=== PATIENT | male | born 1985 | race Caucasian/White ===

== ENCOUNTER 2020-07-21 08:51 | Outpatient (REF) | payer OTHER, SELFPAY ==
[2020-07-21 09:34] LABS: Neut%MD 69.4 %; Neutrophils Absolute Auto 5.6 X10*3/uL (2.0-8.3)
== END 2020-07-21 08:52 | disposition home or self-care (01) ==
LOC: HO.LABR 08:51
PROVIDERS: PCP Internal Medicine; Visit Provider Clinical Nurse Specialist Psychiatric/Mental Health
DX: Z79.899 Other long term (current) drug therapy (principal)
CPT/HCPCS: 36415

== ENCOUNTER 2020-08-18 08:55 | Outpatient (REF) | payer OTHER, SELFPAY ==
[2020-08-18 09:44] LABS: Neut%MD 60.4 %; Neutrophils Absolute Auto 3.7 X10*3/uL (2.0-8.3)
== END 2020-08-18 08:56 | disposition home or self-care (01) ==
LOC: HO.LABR 08:55
PROVIDERS: PCP Internal Medicine; Visit Provider Clinical Nurse Specialist Psychiatric/Mental Health
DX: Z79.899 Other long term (current) drug therapy (principal)
CPT/HCPCS: 36415

== ENCOUNTER 2020-09-22 13:06 | Outpatient (REF) | payer OTHER, SELFPAY ==
[2020-09-22 13:33] LABS: Neut%MD 61.1 %; Neutrophils Absolute Auto 3.9 X10*3/uL (2.0-8.3); WBCANC 6.4 X10*3/uL; White Blood Count 6.4 X10*3/uL (4.8-10.8)
== END 2020-09-22 13:07 | disposition home or self-care (01) ==
LOC: HO.LABR 13:06
PROVIDERS: PCP Internal Medicine; Visit Provider Clinical Nurse Specialist Psychiatric/Mental Health
DX: Z79.899 Other long term (current) drug therapy (principal)
CPT/HCPCS: 36415; 85048

== ENCOUNTER 2020-10-06 09:26 | Outpatient (REF) | payer OTHER, SELFPAY | END 2020-10-06 09:27 | disposition home or self-care (01) | LOC: HO.LAB 09:26 | PROVIDERS: Visit Provider Internal Medicine | DX: Z20.828 Contact with and (suspected) exposure to other viral communicable diseases (principal) | CPT/HCPCS: 36415; C9803; U0003 ==

== ENCOUNTER 2020-10-27 13:50 | Outpatient (REF) | payer OTHER, SELFPAY ==
[2020-10-27 14:34] LABS: Neutrophils Absolute Auto 7.4 X10*3/uL (2.0-8.3)
== END 2020-10-27 13:51 | disposition home or self-care (01) ==
LOC: HO.LABR 13:50
PROVIDERS: PCP Internal Medicine; Visit Provider Clinical Nurse Specialist Psychiatric/Mental Health
DX: Z79.899 Other long term (current) drug therapy (principal)
CPT/HCPCS: 36415; 85048

== ENCOUNTER 2020-11-24 13:37 | Outpatient (REF) | payer OTHER, SELFPAY ==
[2020-11-24 14:52] LABS: Neutrophils Absolute Auto 4.7 X10*3/uL (2.0-8.3); WBCANC 7.4 X10*3/uL; White Blood Count 7.4 X10*3/uL (4.8-10.8)
== END 2020-11-24 13:38 | disposition home or self-care (01) ==
LOC: HO.LABR 13:37
PROVIDERS: PCP Internal Medicine; Visit Provider Clinical Nurse Specialist Psychiatric/Mental Health
DX: Z79.899 Other long term (current) drug therapy (principal)
CPT/HCPCS: 36415; 85048

== ENCOUNTER 2020-12-05 10:38 | Outpatient (REF) | payer OTHER, SELFPAY ==
[2020-12-05 14:01] LABS: MANUAL DIFF FLAG NO
[2020-12-05 14:18] LABS: Basophils Percent Auto 0.1 % (0-2); Hematocrit 40.9 % (42-52); Hemoglobin 13.7 g/dl (14.0-18.0); Imm Gran Abs Auto 0.11 X10*3/uL (0.00-0.03); Imm Gran Pct Auto 0.9 % (0.0-0.4); Lymphocytes Absolute Auto 1.8 X10*3/uL (1.2-4.9); Mean Corpuscular HGB Conc 33.5 g/dl (31.0-36.0); Mean Corpuscular Volume 89.5 fL (80-98); Mean Platelet Volume 9.9 fL (9.4-12.4); Monocytes Absolute Auto 0.7 X10*3/uL (0.1-1.2); Monocytes Percent Auto 5.5 % (2-11); Neutrophils Absolute Auto 9.5 X10*3/uL (2.0-8.3); Neutrophils Percent Auto 78.5 % (45-73); Platelet Count 245 X10*3/uL (160-400); Red Blood Count 4.57 X10*6/uL (4.60-5.80); Red Cell Distribution Width 12.3 % (11.0-16.0); White Blood Count 12.1 X10*3/uL (4.8-10.8)
[2020-12-05 14:42] LABS: Alanine Aminotransferase 16 U/L (0-40); Albumin Level 4.8 g/dL (3.5-5.0); Alkaline Phosphatase 121 U/L (39-117); Anion Gap 16 (12-20); Aspartate Amino Transferase 14 U/L (5-37); Bilirubin Total 0.4 mg/dL (0.0-1.0); Blood Urea Nitrogen 19 mg/dL (9-16); Calcium 9.7 mg/dL (8.4-10.2); Carbon Dioxide 29 mmol/L (22-29); Chloride 101 mmol/L (96-108); Cholesterol 260 mg/dL; Estimated Glomerular Filt Rate > 60; Glucose Fasting 87 mg/dL (60-99); HDL Cholesterol 49 mg/dL; LDL Cholesterol Calculated 171 mg/dl; Potassium 4.1 mmol/L (3.3-5.1); Sodium 142 mmol/L (135-145); Total Protein 7.6 g/dL (6.5-8.0); Triglycerides 203 mg/dL
[2020-12-05 14:58] LABS: TSH reflex Free T4 3.69 uIU/mL (0.32-4.0)
== END 2020-12-05 10:39 | disposition home or self-care (01) ==
LOC: HO.HMGCLDS 10:38
PROVIDERS: PCP Internal Medicine; Visit Provider Internal Medicine
DX: Z00.01 Encounter for general adult medical examination with abnormal findings (principal); K59.00 Constipation, unspecified; R00.0 Tachycardia, unspecified
CPT/HCPCS: 36415; 80053; 80061; 84443; 85025

== ENCOUNTER 2020-12-22 13:17 | Outpatient (REF) | payer OTHER, SELFPAY ==
[2020-12-22 14:01] LABS: Neut%MD 66.2 %; Neutrophils Absolute Auto 4.6 X10*3/uL (2.0-8.3)
== END 2020-12-22 13:18 | disposition home or self-care (01) ==
LOC: HO.LABR 13:17
PROVIDERS: PCP Internal Medicine; Visit Provider Clinical Nurse Specialist Psychiatric/Mental Health
DX: Z79.899 Other long term (current) drug therapy (principal)
CPT/HCPCS: 36415; 85048

== ENCOUNTER → 2020-12-29 13:37 | Outpatient (BNVA) | payer OTHER, SELFPAY | PROVIDERS: PCP Internal Medicine; Visit Provider Internal Medicine | DX: R00.0 Tachycardia, unspecified (principal) | CPT/HCPCS: 93005; 99202 ==

== ENCOUNTER → 2021-01-09 09:57 | Outpatient (REF) | payer OTHER, SELFPAY ==
--- NOTE | 2021-01-09 12:00 | ECG_ITS ---
Hook-up date: 2021-01-09 10:06:00 Duration: 24:30:00 Test Indications: TACHYCARDIA, UNSPECIFIED Medications: 065935 QRS complexes 784 Ventricular ectopics which represent <1 % of total QRS comp. 2 Supraventricular ectopics which represent <1 % of total QRS comp. * Paced QRS complexs which represent % of total QRS comp. VENTRICULAR ECTOPY 784 Isolated 0 Bigeminal Cycles 0 Couplets 0 Runs 0 Beats in Runs * Beats LONGEST at * BPM at :: -- * Beats FASTEST at * BPM at :: -- SUPRAVENTRICULAR ECTOPY 2 Isolated 0 Couplets 0 Runs 0 Beats in Runs * Beats LONGEST at * BPM at :: -- * Beats FASTEST at * BPM at :: -- HEART RATES 69 MIN at 06:20:46 2021-01-10 91 AVG 135 MAX at 12:37:50 2021-01-09 LONGEST RR 0.8560 secs at 06:20:46 2021-01-10 S-T LEVELS Channel 1 - 128 mm at 10:06:00 2021-01-09 - 128 mm at 10:06:00 2021-01-09 Channel 2 - 128 mm at 10:06:00 2021-01-09 - 128 mm at 10:06:00 2021-01-09 Channel 3 - 128 mm at 02:92:51 -- - 128 mm at 02:92:51 Basic rhythm Normal sinus rhythm No long pause or profound bradycardia Occasional Premature ventricular complexes , isolated No diary submitted Referred By: Francois Shaw Overread By: RUSTAM JOAQUIN MD
== END ==
LOC: HO.CARD 09:57
PROVIDERS: PCP Internal Medicine; Visit Provider Internal Medicine
DX: R00.0 Tachycardia, unspecified (principal)
CPT/HCPCS: 93226

== ENCOUNTER 2021-01-19 13:51 | Outpatient (REF) | payer OTHER, SELFPAY ==
[2021-01-19 14:39] LABS: Neutrophils Absolute Auto 4.2 X10*3/uL (2.0-8.3); White Blood Count 6.6 X10*3/uL (4.8-10.8)
== END 2021-01-19 13:52 | disposition home or self-care (01) ==
LOC: HO.LABR 13:51
PROVIDERS: PCP Internal Medicine; Visit Provider Clinical Nurse Specialist Psychiatric/Mental Health
DX: Z79.899 Other long term (current) drug therapy (principal)
CPT/HCPCS: 36415; 85048

== ENCOUNTER → 2021-02-09 09:21 | Outpatient (REF) | payer OTHER, SELFPAY ==
--- NOTE | 2021-02-09 09:32 | CA_ITS ---
Transthoracic Echocardiogram Patient (Last, First, Middle): Jose Hernandez, Gender: Male Date of : 1985 Age: 36 Procedure Date: 02/09/2021 Procedure Type: Transthoracic Echocardiogram Location: OP Height: 180.34 cm Weight: 72.58 kg BSA: 1.92 m2 Heart Rate: bpm BP: 102 / 62 mmHg Plate Cleaner: Melisa MD: Francois Shaw MD Wholesale Representative: Howard Vargas MD Symptoms: R00.0 - Tachycardia, unspecified Study Quality: Fair ECG Rhythm: Sinus Conclusions: - 1. Low normal LV systolic function with grade 1 diastolic dysfunction 2. Normal cardiac valvular Doppler 3. No pericardial effusion Findings Left Ventricle Normal left ventricular cavity size. There is normal left ventricular wall thickness. The left ventricular systolic function is low normal. The visually estimated ejection fraction is between 50-55%. Spectral Doppler is indicative of an impaired relaxation filling pattern. E/E prime ratio is <8, consistent with normal filling pressures. Evidence suggests grade I (mild) diastolic dysfunction. Right Ventricle Normal right ventricular cavity size and systolic function. Atria Both atria are normal in size. There is no evidence of interatrial shunt. Aortic Valve The aortic valve structure and function is likely normal. There is no aortic valve stenosis. There is no aortic valve regurgitation. Mitral Valve Normal mitral valve structure and function. There is trace mitral valve regurgitation. There is no mitral valve stenosis. Pulmonic Valve The pulmonic valve was not well visualized. Tricuspid Valve Likely normal tricuspid valve structure and function. Tricuspid regurgitation envelope is inadequate for calculation of right ventricular systolic pressure. Great Vessels All visible segments of the aorta are normal in size. The pulmonary artery was not well visualized. Venous The inferior vena cava is normal in size and collapses greater than 50% with inspiration. Pericardium/Pleural There is no evidence of pericardial effusion. Prior Study Comparison No prior study available for comparison. Measurements 2D Linear Measurements RVIDd: 2.67 RVIDd Index: 1.39 IVSd: 0.64 0.6-0.9/0.6-1.0 cm LVIDd: 4.23 3.9-5.3/4.2-5.9 cm LVIDd Index: 2.20 2.4-3.2/2.2-3.1 cm/m2 LVIDs: 3.10 2.0-3.6 cm LVPWd: 0.79 0.7-1.1 cm Ao Root: 2.50 2.1-3.5 cm LA Diam: 2.60 2.7-3.8/3.0-4.0 cm LAIDs Index: 1.35 1.5-2.3 cm/m2 LV Mass: 109.26 67-162/88-224 g LV Mass Index: 56.91 43-95/49-115 g/m2 LVOT Diam: 2.10 3.0+(-)1.3 cm 2D Systolic Function EF 4C: 42.80 >55% EF 2C: 57.30 >55% EF BiP: 51.10 >55% Mitral Valve MV Pk E: 0.53 MV PK A: 0.62 MV Decel Time: 229.00 E/A: 0.90 E'Lateral: 8.32 E'Medial: 6.58 E/E' Med: 8.00 E/E' Lat: 6.40 Aortic Valve AoV Pk Huan: 1.08 AoV Mn Huan: 0.83 AoV VTI: 0.20 AoV Pk Grad: 5.00 Aov Mn Grad: 3.00 NATAN Cont.VTI: 2.78 LVOT LVOT Pk Huan: 1.00 LVOT Mn Huan: 0.63 LVOT VTI: 0.16 LVOT Pk Grad: 4.00 LVOT Mn Grad: 2.00 LVOT Diam: 2.10 LVOT Area: 3.46 Diastolic Function MV Pk E: 0.53 MV Pk A: 0.62 E/A: 0.90 E'Medial: 6.58 E/E' Med: 8.00 E' Laterial: 8.32 E/E' Lat: 6.40 Tricuspid Valve RA Press: 3.00 Great Vessels Aorta Ao Root-2D: 2.50 2.0-3.7 cm Ao Asc: 3.00 2.1-3.4 cm Ao Arch: 2.60 Updated in Other Vendor System with Status of Final Howard Vargas MD electronically signed on 02/10/2021 3:49:54 PM with status of Final
== END ==
LOC: HO.CARD 09:21
PROVIDERS: PCP Internal Medicine; Visit Provider Internal Medicine
DX: R00.0 Tachycardia, unspecified (principal)
CPT/HCPCS: 93306

== ENCOUNTER 2021-02-16 09:26 | Outpatient (REF) | payer OTHER, SELFPAY ==
[2021-02-16 10:17] LABS: Neut%MD 62.3 %; Neutrophils Absolute Auto 4.4 X10*3/uL (2.0-8.3)
== END 2021-02-16 09:27 | disposition home or self-care (01) ==
LOC: HO.LABR 09:26
PROVIDERS: PCP Internal Medicine; Visit Provider Clinical Nurse Specialist Psychiatric/Mental Health
DX: Z79.899 Other long term (current) drug therapy (principal)
CPT/HCPCS: 36415; 85048

== ENCOUNTER → 2021-03-02 13:50 | Outpatient (BNVA) | payer OTHER, SELFPAY | PROVIDERS: PCP Internal Medicine; Referring Provider Internal Medicine; Visit Provider Internal Medicine | DX: I49.3 Ventricular premature depolarization (principal); R00.0 Tachycardia, unspecified | CPT/HCPCS: 99212 ==

== ENCOUNTER 2021-03-16 13:13 | Outpatient (REF) | payer OTHER, SELFPAY ==
[2021-03-16 14:10] LABS: Neutrophils Absolute Auto 4.6 X10*3/uL (2.0-8.3); White Blood Count 7.3 X10*3/uL (4.8-10.8)
== END 2021-03-16 13:14 | disposition home or self-care (01) ==
LOC: HO.LABR 13:13
PROVIDERS: PCP Internal Medicine; Visit Provider Clinical Nurse Specialist Psychiatric/Mental Health
DX: Z79.899 Other long term (current) drug therapy (principal)
CPT/HCPCS: 36415; 85048

== ENCOUNTER 2021-04-13 13:38 | Outpatient (REF) | payer OTHER, SELFPAY ==
[2021-04-13 14:22] LABS: Neutrophils Absolute Auto 4.7 X10*3/uL (2.0-8.3); White Blood Count 7.1 X10*3/uL (4.8-10.8)
== END 2021-04-13 13:39 | disposition home or self-care (01) ==
LOC: HO.LABR 13:38
PROVIDERS: PCP Internal Medicine; Visit Provider Clinical Nurse Specialist Psychiatric/Mental Health
DX: Z79.899 Other long term (current) drug therapy (principal)
CPT/HCPCS: 36415; 85048

== ENCOUNTER 2021-05-11 11:15 | Outpatient (REF) | payer OTHER, SELFPAY ==
[2021-05-11 12:42] LABS: Neutrophils Absolute Auto 3.7 X10*3/uL (2.0-8.3); White Blood Count 6.2 X10*3/uL (4.8-10.8)
== END 2021-05-11 11:16 | disposition home or self-care (01) ==
LOC: HO.LABR 11:15
PROVIDERS: PCP Internal Medicine; Visit Provider Clinical Nurse Specialist Psychiatric/Mental Health
DX: Z79.899 Other long term (current) drug therapy (principal)
CPT/HCPCS: 36415; 85048

== ENCOUNTER 2021-06-15 09:15 | Outpatient (REF) | payer OTHER, SELFPAY ==
[2021-06-15 10:39] LABS: Neutrophils Absolute Auto 4.5 X10*3/uL (2.0-8.3)
== END 2021-06-15 09:16 | disposition home or self-care (01) ==
LOC: HO.LABR 09:15
PROVIDERS: PCP Internal Medicine; Visit Provider Clinical Nurse Specialist Psychiatric/Mental Health
DX: Z79.899 Other long term (current) drug therapy (principal)
CPT/HCPCS: 36415; 85048

== ENCOUNTER 2021-07-13 13:56 | Outpatient (REF) | payer OTHER, SELFPAY ==
[2021-07-13 14:29] LABS: Neutrophils Absolute Auto 5.2 X10*3/uL (2.0-8.3); White Blood Count 8.4 X10*3/uL (4.8-10.8)
== END 2021-07-13 13:57 | disposition home or self-care (01) ==
LOC: HO.LABR 13:56
PROVIDERS: PCP Internal Medicine; Visit Provider Clinical Nurse Specialist Psychiatric/Mental Health
DX: Z79.899 Other long term (current) drug therapy (principal)
CPT/HCPCS: 36415; 85048

== ENCOUNTER 2021-08-03 14:28 | Outpatient (REF) | payer OTHER, SELFPAY ==
[2021-08-03 14:39] LABS: Neutrophils Absolute Auto 5.27 x10*3/uL (2.0-8.3); White Blood Count 8.5 X10*3/uL (4.8-10.8)
== END 2021-08-03 14:29 | disposition home or self-care (01) ==
LOC: HO.LABR 14:28
PROVIDERS: PCP Internal Medicine; Visit Provider Clinical Nurse Specialist Psychiatric/Mental Health
DX: Z79.899 Other long term (current) drug therapy (principal)
CPT/HCPCS: 36415; 85048

== ENCOUNTER 2021-09-07 13:47 | Outpatient (REF) | payer OTHER, SELFPAY ==
[2021-09-07 14:18] LABS: White Blood Count 7.6 X10*3/uL (4.8-10.8)
== END 2021-09-07 13:48 | disposition home or self-care (01) ==
LOC: HO.LABR 13:47
PROVIDERS: PCP Internal Medicine; Visit Provider Clinical Nurse Specialist Psychiatric/Mental Health
DX: Z79.899 Other long term (current) drug therapy (principal)
CPT/HCPCS: 36415; 85048

== ENCOUNTER 2021-10-12 08:49 | Outpatient (REF) | payer OTHER, SELFPAY ==
[2021-10-12 09:24] LABS: Neut%MD 63.8 %; Neutrophils Absolute Auto 4.5 x10*3/uL (2.0-8.3); WBCANC 7.1 X10*3/uL; White Blood Count 7.1 X10*3/uL (4.8-10.8)
== END 2021-10-12 08:50 | disposition home or self-care (01) ==
LOC: HO.LABR 08:49
PROVIDERS: PCP Internal Medicine; Visit Provider Clinical Nurse Specialist Psychiatric/Mental Health
DX: Z79.899 Other long term (current) drug therapy (principal)
CPT/HCPCS: 36415; 85048

== ENCOUNTER 2021-11-09 14:57 | Outpatient (REF) | payer OTHER, SELFPAY | END 2021-11-09 14:58 | disposition home or self-care (01) | LOC: HO.LABR 14:57 | PROVIDERS: PCP Internal Medicine; Visit Provider Clinical Nurse Specialist Psychiatric/Mental Health | DX: Z79.899 Other long term (current) drug therapy (principal) | CPT/HCPCS: 36415 ==

== ENCOUNTER 2021-12-07 09:04 | Outpatient (REF) | payer OTHER, SELFPAY ==
[2021-12-07 09:40] LABS: Hematocrit 39.6 % (42.0-52.0); Hemoglobin 13.2 g/dl (14.0-18.0); IG%MD 0.4 %; Lymph%MD 27.9 %; Mean Corpuscular HGB Conc 33.3 g/dl (31.0-36.0); Mean Corpuscular Hemoglobin 29.9 pg (27.0-33.0); Mean Corpuscular Volume 89.6 fL (80.0-98.0); Mean Platelet Volume 9.3 fL (9.4-12.4); Mono%MD 7.1 %; Neut%MD 64.6 %; Platelet Count 234 X10*3/uL (160-400); Red Blood Count 4.42 X10*6/uL (4.60-5.80); Red Cell Distribution Width 12.5 % (11.0-16.0); White Blood Count 7.1 X10*3/uL (4.8-10.8)
[2021-12-07 14:13] LABS: Lymphocytes Absolute Manual 1.9 X10*3/uL (1.2-4.9); Lymphocytes Percent Manual 27 % (20-40); Monocytes Absolute Manual 0.6 X10*3/uL (0.1-1.2); Monocytes Percent Manual 8 % (2-11); Neutrophils Percent Manual 65 % (45-73)
[2021-12-07 14:14] LABS: Band Neutrophils Percent 0 % (3-5); Neutrophils Absolute Manual 4.6 X10*3/uL (2.0-8.3); Platelet Estimate NORMAL (NORMAL); Platelet Morphology Comment NORMAL; RBC Morphology NORMAL
== END 2021-12-07 09:05 | disposition home or self-care (01) ==
LOC: HO.LABR 09:04
PROVIDERS: PCP Internal Medicine; Visit Provider Registered Nurse
DX: Z51.81 Encounter for therapeutic drug level monitoring (principal); Z79.899 Other long term (current) drug therapy
CPT/HCPCS: 36415; 85007; 85027

== ENCOUNTER 2022-01-04 14:53 | Outpatient (REF) | payer OTHER, SELFPAY ==
[2022-01-04 15:02] LABS: MANUAL DIFF FLAG NO
[2022-01-04 15:24] LABS: Basophils Percent Auto 0.1 % (0-2); Eosinophils Percent Auto 0.1 % (0-4); Hematocrit 37.1 % (42.0-52.0); Hemoglobin 12.5 g/dl (14.0-18.0); Imm Gran Abs Auto 0.04 X10*3/uL (0.00-0.03); Imm Gran Pct Auto 0.4 % (0.0-0.4); Lymphocytes Absolute Auto 2.2 X10*3/uL (1.2-4.9); Lymphocytes Percent Auto 21.8 % (20-40); Mean Corpuscular HGB Conc 33.7 g/dl (31.0-36.0); Mean Corpuscular Volume 89.2 fL (80.0-98.0); Mean Platelet Volume 9.4 fL (9.4-12.4); Monocytes Absolute Auto 0.6 X10*3/uL (0.1-1.2); Monocytes Percent Auto 6.2 % (2-11); Neutrophils Absolute Auto 7.3 x10*3/uL (2.0-8.3); Neutrophils Percent Auto 71.4 % (45-73); Platelet Count 256 X10*3/uL (160-400); Red Blood Count 4.16 X10*6/uL (4.60-5.80); Red Cell Distribution Width 12.7 % (11.0-16.0); White Blood Count 10.2 X10*3/uL (4.8-10.8)
== END 2022-01-04 14:54 | disposition home or self-care (01) ==
LOC: HO.LABR 14:53
PROVIDERS: PCP Internal Medicine; Visit Provider Registered Nurse
DX: Z79.899 Other long term (current) drug therapy (principal)
CPT/HCPCS: 36415; 85025

== ENCOUNTER 2022-02-01 08:48 | Outpatient (REF) | payer OTHER, SELFPAY ==
[2022-02-01 09:19] LABS: MANUAL DIFF FLAG NO
[2022-02-01 10:05] LABS: Hematocrit 38.3 % (42.0-52.0); Hemoglobin 12.7 g/dl (14.0-18.0); Imm Gran Abs Auto 0.03 X10*3/uL (0.00-0.03); Imm Gran Pct Auto 0.5 % (0.0-0.4); Lymphocytes Absolute Auto 1.7 X10*3/uL (1.2-4.9); Lymphocytes Percent Auto 26.3 % (20-40); Mean Corpuscular HGB Conc 33.2 g/dl (31.0-36.0); Mean Corpuscular Hemoglobin 29.5 pg (27.0-33.0); Mean Corpuscular Volume 89.1 fL (80.0-98.0); Mean Platelet Volume 9.5 fL (9.4-12.4); Monocytes Absolute Auto 0.4 X10*3/uL (0.1-1.2); Monocytes Percent Auto 5.6 % (2-11); Neutrophils Absolute Auto 4.4 x10*3/uL (2.0-8.3); Neutrophils Percent Auto 67.6 % (45-73); Platelet Count 240 X10*3/uL (160-400); Red Cell Distribution Width 12.5 % (11.0-16.0); White Blood Count 6.5 X10*3/uL (4.8-10.8)
== END 2022-02-01 08:49 | disposition home or self-care (01) ==
LOC: HO.LABR 08:48
PROVIDERS: PCP Internal Medicine; Visit Provider Registered Nurse
DX: Z79.899 Other long term (current) drug therapy (principal)
CPT/HCPCS: 36415; 85025

== ENCOUNTER → 2022-02-19 07:35 | Outpatient (REF) | payer OTHER, SELFPAY ==
--- NOTE | 2022-02-19 07:39 | CA_ITS ---
Transthoracic Echocardiogram Patient (Last, First, Middle): Jose Hernandez, Gender: Male Date of : 1985 Age: 37 Procedure Date: 02/19/2022 Procedure Type: Transthoracic Echocardiogram Location: OP Height: 180.34 cm Weight: 74.84 kg BSA: 1.94 m2 Heart Rate: bpm BP: 110 / 70 mmHg Cooking Chef: TO/ Referring MD: Francois Shaw MD Symptoms: R00.0 - Tachycardia, unspecified Study Quality: Good ECG Rhythm: Sinus Conclusions: - The left ventricular systolic function is mildly decreased. Visually estimated LVEF about 50%. - No obvious valvular pathology seen on this study. Findings Left Ventricle Normal left ventricular cavity size. There is normal left ventricular wall thickness. The left ventricular systolic function is mildly decreased. There is borderline global hypokinesis. Diastolic function is normal for age. Visually estimated LVEF about 50%. Right Ventricle Normal right ventricular cavity size and systolic function. Atria Both atria are normal in size. Aortic Valve There is a normal trileaflet aortic valve. There is no aortic valve stenosis. There is no aortic valve regurgitation. Mitral Valve The mitral valve appears normal. There is no mitral valve regurgitation. There is no mitral valve stenosis. Pulmonic Valve The pulmonic valve is likely normal. Tricuspid Valve Normal tricuspid valve structure. There is no tricuspid valve regurgitation. The pulmonary artery systolic pressure is normal. Great Vessels The asc aorta and aortic arch are normal in size. Venous The inferior vena cava is normal in size and collapses greater than 50% with inspiration. Pericardium/Pleural There is no evidence of pericardial effusion. Prior Study Comparison No significant change compared to prior study dated: 02/09/2021. Recommendations, Care & Conclusions No obvious valvular pathology seen on this study. Measurements 2D Linear Measurements IVSd: 0.68 0.6-0.9/0.6-1.0 cm LVIDd: 4.62 3.9-5.3/4.2-5.9 cm LVIDd Index: 2.38 2.4-3.2/2.2-3.1 cm/m2 LVIDs: 2.80 2.0-3.6 cm LVPWd: 0.77 0.7-1.1 cm LA Diam: 2.70 2.7-3.8/3.0-4.0 cm LAIDs Index: 1.39 1.5-2.3 cm/m2 LV Mass: 130.84 67-162/88-224 g LV Mass Index: 67.45 43-95/49-115 g/m2 LVOT Diam: 2.10 3.0+(-)1.3 cm 2D Systolic Function EF 4C: 59.90 >55% EF 2C: 53.30 >55% EF BiP: 56.00 >55% Mitral Valve MV Pk E: 0.63 MV PK A: 0.66 MV Decel Time: 184.00 E/A: 0.90 E'Lateral: 6.85 E'Medial: 7.83 E/E' Med: 8.00 E/E' Lat: 9.10 PHT: 54.00 MVA PHT: 4.07 Decel [place]: 3.39 Aortic Valve AoV Pk Huan: 1.06 AoV Mn Huan: 0.77 AoV VTI: 0.18 AoV Pk Grad: 4.00 Aov Mn Grad: 3.00 NATAN Cont.VTI: 2.87 LVOT LVOT Pk Huan: 1.03 LVOT Mn Huan: 0.68 LVOT VTI: 0.15 LVOT Pk Grad: 4.00 LVOT Mn Grad: 2.00 LVOT Diam: 2.10 LVOT Area: 3.46 Diastolic Function MV Pk E: 0.63 MV Pk A: 0.66 E/A: 0.90 E'Medial: 7.83 E/E' Med: 8.00 E' Laterial: 6.85 E/E' Lat: 9.10 Right Ventricle TAPSE (mm): 26.90 TVS' Huan: 14.50 Tricuspid Valve TR Pk Huan: 1.21 TR Pk Grad: 6.00 Great Vessels Aorta Sinus of Valsalva: 2.95 2.0-3.[address] [place]: 2.69 1.7-3.4 cm Ao Asc: 3.30 2.1-3.4 cm Ao Arch: 2.70 Updated in Other Vendor System with Status of Final Francois Shaw MD electronically signed on 02/20/2022 12:01:44 PM with status of Final
--- NOTE | 2022-02-19 09:33 | ECG_ITS ---
Hook-up date: 2022-02-19 07:56:00 Duration: 47:59:00 Test Indications: TACHYCARDIA Medications: 568719 QRS complexes 1832 Ventricular ectopics which represent 1 % of total QRS comp. 1 Supraventricular ectopics which represent <1 % of total QRS comp. * Paced QRS complexs which represent % of total QRS comp. VENTRICULAR ECTOPY 1832 Isolated 0 Bigeminal Cycles 0 Couplets 0 Runs 0 Beats in Runs * Beats LONGEST at * BPM at :: -- * Beats FASTEST at * BPM at :: -- SUPRAVENTRICULAR ECTOPY 1 Isolated 0 Couplets 0 Runs 0 Beats in Runs * Beats LONGEST at * BPM at :: -- * Beats FASTEST at * BPM at :: -- HEART RATES 56 MIN at 05:26:13 2022-02-20 88 AVG 128 MAX at 12:22:40 2022-02-19 LONGEST RR 1.0640 secs at 05:26:17 2022-02-20 S-T LEVELS Channel 1 - 128 mm at 07:56:00 2022-02-19 - 128 mm at 07:56:00 2022-02-19 Channel 2 - 128 mm at 07:56:00 2022-02-19 - 128 mm at 07:56:00 2022-02-19 Channel 3 - 128 mm at 02:71:51 -- - 128 mm at 02:71:51 Underlying rhythm is sinus; Average ventricular rate 88/min; range 56-128/min; About 30% of the time, rate >100/min; Occasional ventricualr ectopy (1% burden); Patient did not report any symptoms in the diary Referred By: Javier Gonzalez Overread By: JAVIER GONZALEZ
== END ==
LOC: HO.CARD 07:35
PROVIDERS: PCP Internal Medicine; Visit Provider Internal Medicine
DX: R00.0 Tachycardia, unspecified (principal)
CPT/HCPCS: 93225; 93226; 93306

== ENCOUNTER 2022-03-01 09:01 | Outpatient (REF) | payer OTHER, SELFPAY ==
[2022-03-01 09:19] LABS: MANUAL DIFF FLAG NO
[2022-03-01 09:43] LABS: Basophils Percent Auto 0.2 % (0-2); Hemoglobin 13.1 g/dl (14.0-18.0); Imm Gran Abs Auto 0.02 X10*3/uL (0.00-0.03); Imm Gran Pct Auto 0.3 % (0.0-0.4); Lymphocytes Absolute Auto 1.9 X10*3/uL (1.2-4.9); Lymphocytes Percent Auto 32.2 % (20-40); Mean Corpuscular HGB Conc 33.6 g/dl (31.0-36.0); Mean Corpuscular Hemoglobin 29.6 pg (27.0-33.0); Mean Corpuscular Volume 88.2 fL (80.0-98.0); Mean Platelet Volume 9.3 fL (9.4-12.4); Monocytes Absolute Auto 0.4 X10*3/uL (0.1-1.2); Monocytes Percent Auto 6.2 % (2-11); Neutrophils Absolute Auto 3.5 x10*3/uL (2.0-8.3); Neutrophils Percent Auto 61.1 % (45-73); Platelet Count 211 X10*3/uL (160-400); Red Blood Count 4.42 X10*6/uL (4.60-5.80); Red Cell Distribution Width 12.2 % (11.0-16.0); White Blood Count 5.8 X10*3/uL (4.8-10.8)
== END 2022-03-01 09:02 | disposition home or self-care (01) ==
LOC: HO.LABR 09:01
PROVIDERS: PCP Internal Medicine; Visit Provider Clinical Nurse Specialist Psychiatric/Mental Health, Adult
DX: Z79.899 Other long term (current) drug therapy (principal)
CPT/HCPCS: 36415; 85025

== ENCOUNTER → 2022-03-05 11:40 | Outpatient (BNVA) | payer OTHER, SELFPAY | PROVIDERS: PCP Internal Medicine; Referring Provider Internal Medicine; Visit Provider Internal Medicine | DX: R00.0 Tachycardia, unspecified (principal); I49.3 Ventricular premature depolarization | CPT/HCPCS: 93005; 99212 ==

== ENCOUNTER 2022-03-29 08:48 | Outpatient (REF) | payer OTHER, SELFPAY ==
[2022-03-29 09:14] LABS: MANUAL DIFF FLAG NO
[2022-03-29 09:59] LABS: Basophils Percent Auto 0.1 % (0-2); Eosinophils Percent Auto 0.1 % (0-4); Hematocrit 38.2 % (42.0-52.0); Hemoglobin 12.8 g/dl (14.0-18.0); Imm Gran Abs Auto 0.03 X10*3/uL (0.00-0.03); Imm Gran Pct Auto 0.4 % (0.0-0.4); Mean Corpuscular HGB Conc 33.5 g/dl (31.0-36.0); Mean Corpuscular Volume 86.6 fL (80.0-98.0); Mean Platelet Volume 9.4 fL (9.4-12.4); Monocytes Absolute Auto 0.4 X10*3/uL (0.1-1.2); Monocytes Percent Auto 5.9 % (2-11); Neutrophils Absolute Auto 4.7 x10*3/uL (2.0-8.3); Neutrophils Percent Auto 65.5 % (45-73); Platelet Count 215 X10*3/uL (160-400); Red Blood Count 4.41 X10*6/uL (4.60-5.80); Red Cell Distribution Width 11.9 % (11.0-16.0); White Blood Count 7.2 X10*3/uL (4.8-10.8)
== END 2022-03-29 08:49 | disposition home or self-care (01) ==
LOC: HO.LABR 08:48
PROVIDERS: PCP Internal Medicine; Visit Provider Clinical Nurse Specialist Psychiatric/Mental Health, Adult
DX: Z79.899 Other long term (current) drug therapy (principal)
CPT/HCPCS: 36415; 85025

== ENCOUNTER 2022-04-26 09:48 | Outpatient (REF) | payer OTHER, SELFPAY ==
[2022-04-26 10:04] LABS: MANUAL DIFF FLAG NO
[2022-04-26 10:47] LABS: Basophils Percent Auto 0.1 % (0-2); Eosinophils Percent Auto 0.1 % (0-4); Hematocrit 38.4 % (42.0-52.0); Hemoglobin 13.1 g/dl (14.0-18.0); Imm Gran Abs Auto 0.04 X10*3/uL (0.00-0.03); Imm Gran Pct Auto 0.5 % (0.0-0.4); Lymphocytes Absolute Auto 2.3 X10*3/uL (1.2-4.9); Lymphocytes Percent Auto 30.5 % (20-40); Mean Corpuscular HGB Conc 34.1 g/dl (31.0-36.0); Mean Corpuscular Hemoglobin 29.5 pg (27.0-33.0); Mean Corpuscular Volume 86.5 fL (80.0-98.0); Mean Platelet Volume 9.2 fL (9.4-12.4); Monocytes Absolute Auto 0.5 X10*3/uL (0.1-1.2); Neutrophils Absolute Auto 4.7 x10*3/uL (2.0-8.3); Neutrophils Percent Auto 61.8 % (45-73); Platelet Count 215 X10*3/uL (160-400); Red Blood Count 4.44 X10*6/uL (4.60-5.80); Red Cell Distribution Width 12.2 % (11.0-16.0); White Blood Count 7.6 X10*3/uL (4.8-10.8)
== END 2022-04-26 09:49 | disposition home or self-care (01) ==
LOC: HO.LABR 09:48
PROVIDERS: PCP Internal Medicine; Visit Provider Clinical Nurse Specialist Psychiatric/Mental Health, Adult
DX: Z79.899 Other long term (current) drug therapy (principal)
CPT/HCPCS: 36415; 85025

== ENCOUNTER 2022-05-24 11:57 | Outpatient (REF) | payer OTHER, SELFPAY ==
[2022-05-24 12:19] LABS: MANUAL DIFF FLAG NO
[2022-05-24 14:05] LABS: Basophils Percent Auto 0.1 % (0-2); Eosinophils Percent Auto 0.1 % (0-4); Hematocrit 39.1 % (42.0-52.0); Hemoglobin 12.9 g/dl (14.0-18.0); Imm Gran Abs Auto 0.03 X10*3/uL (0.00-0.03); Imm Gran Pct Auto 0.4 % (0.0-0.4); Lymphocytes Absolute Auto 1.9 X10*3/uL (1.2-4.9); Lymphocytes Percent Auto 25.9 % (20-40); Mean Corpuscular Hemoglobin 28.7 pg (27.0-33.0); Mean Corpuscular Volume 86.9 fL (80.0-98.0); Mean Platelet Volume 9.8 fL (9.4-12.4); Monocytes Absolute Auto 0.5 X10*3/uL (0.1-1.2); Monocytes Percent Auto 6.5 % (2-11); Neutrophils Absolute Auto 4.8 x10*3/uL (2.0-8.3); Platelet Count 260 X10*3/uL (160-400); Red Cell Distribution Width 12.6 % (11.0-16.0); White Blood Count 7.2 X10*3/uL (4.8-10.8)
== END 2022-05-24 11:58 | disposition home or self-care (01) ==
LOC: HO.LAB 11:57
PROVIDERS: Visit Provider Clinical Nurse Specialist Psychiatric/Mental Health, Adult
DX: Z79.899 Other long term (current) drug therapy (principal)
CPT/HCPCS: 36415; 85025

== ENCOUNTER → 2022-06-13 10:39 | Outpatient (BNVA) | payer OTHER, SELFPAY | PROVIDERS: PCP Internal Medicine; Referring Provider Internal Medicine; Visit Provider Internal Medicine | DX: R00.2 Palpitations (principal) | CPT/HCPCS: 93005; 99212 ==

== ENCOUNTER 2022-06-21 09:00 | Outpatient (REF) | payer OTHER, SELFPAY ==
[2022-06-21 09:21] LABS: MANUAL DIFF FLAG NO
[2022-06-21 09:48] LABS: Basophils Percent Auto 0.1 % (0-2); Eosinophils Percent Auto 0.1 % (0-4); Hematocrit 37.1 % (42.0-52.0); Hemoglobin 12.7 g/dl (14.0-18.0); Imm Gran Abs Auto 0.02 X10*3/uL (0.00-0.03); Imm Gran Pct Auto 0.3 % (0.0-0.4); Lymphocytes Absolute Auto 2.4 X10*3/uL (1.2-4.9); Lymphocytes Percent Auto 34.2 % (20-40); Mean Corpuscular HGB Conc 34.2 g/dl (31.0-36.0); Mean Corpuscular Hemoglobin 29.5 pg (27.0-33.0); Mean Corpuscular Volume 86.3 fL (80.0-98.0); Mean Platelet Volume 9.2 fL (9.4-12.4); Monocytes Absolute Auto 0.4 X10*3/uL (0.1-1.2); Monocytes Percent Auto 5.5 % (2-11); Neut%MD 59.8 %; Neutrophils Absolute Auto 4.2 x10*3/uL (2.0-8.3); Neutrophils Percent Auto 59.8 % (45-73); Platelet Count 227 X10*3/uL (160-400); Red Cell Distribution Width 12.4 % (11.0-16.0)
== END 2022-06-21 09:01 | disposition home or self-care (01) ==
LOC: HO.LABR 09:00
PROVIDERS: Absent Provider Clinical Nurse Specialist Psychiatric/Mental Health, Adult; PCP Internal Medicine; Referring Provider Internal Medicine; Visit Provider Registered Nurse
DX: Z79.899 Other long term (current) drug therapy (principal)
CPT/HCPCS: 36415; 85025

== ENCOUNTER 2022-07-19 13:56 | Outpatient (REF) | payer OTHER, SELFPAY ==
[2022-07-19 14:08] LABS: MANUAL DIFF FLAG NO
[2022-07-19 14:29] LABS: Basophils Percent Auto 0.3 % (0-2); Eosinophils Percent Auto 0.3 % (0-4); Hematocrit 38.9 % (42.0-52.0); Hemoglobin 13.2 g/dl (14.0-18.0); Imm Gran Abs Auto 0.03 X10*3/uL (0.00-0.03); Imm Gran Pct Auto 0.4 % (0.0-0.4); Lymphocytes Absolute Auto 2.1 X10*3/uL (1.2-4.9); Lymphocytes Percent Auto 29.5 % (20-40); Mean Corpuscular HGB Conc 33.9 g/dl (31.0-36.0); Mean Corpuscular Hemoglobin 29.7 pg (27.0-33.0); Mean Corpuscular Volume 87.6 fL (80.0-98.0); Mean Platelet Volume 9.2 fL (9.4-12.4); Monocytes Absolute Auto 0.5 X10*3/uL (0.1-1.2); Monocytes Percent Auto 6.3 % (2-11); Neutrophils Absolute Auto 4.6 x10*3/uL (2.0-8.3); Neutrophils Percent Auto 63.2 % (45-73); Platelet Count 231 X10*3/uL (160-400); Red Blood Count 4.44 X10*6/uL (4.60-5.80); Red Cell Distribution Width 12.4 % (11.0-16.0); White Blood Count 7.2 X10*3/uL (4.8-10.8)
== END 2022-07-19 13:57 | disposition home or self-care (01) ==
LOC: HO.LABR 13:56
PROVIDERS: Absent Provider Clinical Nurse Specialist Psychiatric/Mental Health, Adult; PCP Internal Medicine; Visit Provider Internal Medicine
DX: Z79.899 Other long term (current) drug therapy (principal)
CPT/HCPCS: 36415; 85025

== ENCOUNTER 2022-08-16 14:06 | Outpatient (REF) | payer OTHER, SELFPAY ==
[2022-08-16 14:16] LABS: MANUAL DIFF FLAG NO
[2022-08-16 14:41] LABS: Basophils Percent Auto 0.4 % (0-2); Eosinophils Absolute Auto 0.1 X10*3/uL (0.0-0.4); Eosinophils Percent Auto 1.4 % (0-4); Hematocrit 39.2 % (42.0-52.0); Imm Gran Abs Auto 0.02 X10*3/uL (0.00-0.03); Imm Gran Pct Auto 0.3 % (0.0-0.4); Lymphocytes Absolute Auto 2.2 X10*3/uL (1.2-4.9); Lymphocytes Percent Auto 30.4 % (20-40); Mean Corpuscular HGB Conc 33.2 g/dl (31.0-36.0); Mean Corpuscular Hemoglobin 29.5 pg (27.0-33.0); Mean Corpuscular Volume 89.1 fL (80.0-98.0); Mean Platelet Volume 9.2 fL (9.4-12.4); Monocytes Absolute Auto 0.5 X10*3/uL (0.1-1.2); Monocytes Percent Auto 6.4 % (2-11); Neutrophils Absolute Auto 4.4 x10*3/uL (2.0-8.3); Neutrophils Percent Auto 61.1 % (45-73); Platelet Count 228 X10*3/uL (160-400); Red Cell Distribution Width 12.4 % (11.0-16.0); White Blood Count 7.2 X10*3/uL (4.8-10.8)
== END 2022-08-16 14:07 | disposition home or self-care (01) ==
LOC: HO.LABR 14:06
PROVIDERS: PCP Internal Medicine; Visit Provider Clinical Nurse Specialist Psychiatric/Mental Health, Adult
DX: Z79.899 Other long term (current) drug therapy (principal)
CPT/HCPCS: 36415; 85025

== ENCOUNTER 2022-09-13 13:59 | Outpatient (REF) | payer OTHER, SELFPAY ==
[2022-09-13 14:10] LABS: MANUAL DIFF FLAG NO
[2022-09-13 14:33] LABS: Basophils Percent Auto 0.4 % (0-2); Eosinophils Absolute Auto 0.3 X10*3/uL (0.0-0.4); Eosinophils Percent Auto 4.2 % (0-4); Hemoglobin 13.1 g/dl (14.0-18.0); Imm Gran Abs Auto 0.02 X10*3/uL (0.00-0.03); Imm Gran Pct Auto 0.3 % (0.0-0.4); Lymphocytes Absolute Auto 2.5 X10*3/uL (1.2-4.9); Lymphocytes Percent Auto 31.9 % (20-40); Mean Corpuscular HGB Conc 33.6 g/dl (31.0-36.0); Mean Corpuscular Hemoglobin 29.7 pg (27.0-33.0); Mean Corpuscular Volume 88.4 fL (80.0-98.0); Mean Platelet Volume 9.3 fL (9.4-12.4); Monocytes Absolute Auto 0.5 X10*3/uL (0.1-1.2); Monocytes Percent Auto 6.7 % (2-11); Neutrophils Absolute Auto 4.5 x10*3/uL (2.0-8.3); Neutrophils Percent Auto 56.5 % (45-73); Platelet Count 239 X10*3/uL (160-400); Red Blood Count 4.41 X10*6/uL (4.60-5.80); Red Cell Distribution Width 12.1 % (11.0-16.0); White Blood Count 7.9 X10*3/uL (4.8-10.8)
== END 2022-09-13 14:00 | disposition home or self-care (01) ==
LOC: HO.LABR 13:59
PROVIDERS: PCP Internal Medicine; Visit Provider Clinical Nurse Specialist Psychiatric/Mental Health, Adult
DX: Z79.899 Other long term (current) drug therapy (principal)
CPT/HCPCS: 36415; 85025

== ENCOUNTER 2022-10-11 12:52 | Outpatient (REF) | payer OTHER, SELFPAY ==
[2022-10-11 13:01] LABS: MANUAL DIFF FLAG NO
[2022-10-11 13:32] LABS: Basophils Percent Auto 0.4 % (0-2); Eosinophils Absolute Auto 0.3 X10*3/uL (0.0-0.4); Eosinophils Percent Auto 3.8 % (0-4); Hemoglobin 13.3 g/dl (14.0-18.0); Imm Gran Abs Auto 0.03 X10*3/uL (0.00-0.03); Imm Gran Pct Auto 0.4 % (0.0-0.4); Lymphocytes Absolute Auto 2.6 X10*3/uL (1.2-4.9); Lymphocytes Percent Auto 31.3 % (20-40); Mean Corpuscular HGB Conc 34.1 g/dl (31.0-36.0); Mean Corpuscular Hemoglobin 30.2 pg (27.0-33.0); Mean Corpuscular Volume 88.4 fL (80.0-98.0); Mean Platelet Volume 9.1 fL (9.4-12.4); Monocytes Absolute Auto 0.5 X10*3/uL (0.1-1.2); Monocytes Percent Auto 5.8 % (2-11); Neutrophils Absolute Auto 4.8 x10*3/uL (2.0-8.3); Neutrophils Percent Auto 58.3 % (45-73); Platelet Count 232 X10*3/uL (160-400); Red Blood Count 4.41 X10*6/uL (4.60-5.80); White Blood Count 8.2 X10*3/uL (4.8-10.8)
== END 2022-10-11 12:53 | disposition home or self-care (01) ==
LOC: HO.LABR 12:52
PROVIDERS: PCP Internal Medicine; Visit Provider Clinical Nurse Specialist Psychiatric/Mental Health, Adult
DX: Z79.899 Other long term (current) drug therapy (principal)
CPT/HCPCS: 36415; 85025

== ENCOUNTER 2022-11-08 10:19 | Outpatient (REF) | payer OTHER, SELFPAY ==
[2022-11-08 10:31] LABS: MANUAL DIFF FLAG NO
[2022-11-08 11:37] LABS: Basophils Percent Auto 0.4 % (0-2); Eosinophils Absolute Auto 0.3 X10*3/uL (0.0-0.4); Eosinophils Percent Auto 3.9 % (0-4); Hematocrit 39.3 % (42.0-52.0); Hemoglobin 13.2 g/dl (14.0-18.0); Imm Gran Abs Auto 0.03 X10*3/uL (0.00-0.03); Imm Gran Pct Auto 0.4 % (0.0-0.4); Lymphocytes Absolute Auto 2.6 X10*3/uL (1.2-4.9); Lymphocytes Percent Auto 33.1 % (20-40); Mean Corpuscular HGB Conc 33.6 g/dl (31.0-36.0); Mean Corpuscular Hemoglobin 29.7 pg (27.0-33.0); Mean Corpuscular Volume 88.3 fL (80.0-98.0); Mean Platelet Volume 9.5 fL (9.4-12.4); Monocytes Absolute Auto 0.4 X10*3/uL (0.1-1.2); Monocytes Percent Auto 5.6 % (2-11); Neutrophils Absolute Auto 4.5 x10*3/uL (2.0-8.3); Neutrophils Percent Auto 56.6 % (45-73); Platelet Count 249 X10*3/uL (160-400); Red Blood Count 4.45 X10*6/uL (4.60-5.80); Red Cell Distribution Width 12.2 % (11.0-16.0); White Blood Count 7.9 X10*3/uL (4.8-10.8)
== END 2022-11-08 10:20 | disposition home or self-care (01) ==
LOC: HO.LABR 10:19
PROVIDERS: PCP Internal Medicine; Visit Provider Clinical Nurse Specialist Psychiatric/Mental Health, Adult
DX: Z79.899 Other long term (current) drug therapy (principal)
CPT/HCPCS: 36415; 85025

== ENCOUNTER 2022-12-06 08:37 | Outpatient (REF) | payer OTHER, SELFPAY ==
[2022-12-06 08:47] LABS: MANUAL DIFF FLAG NO
[2022-12-06 09:10] LABS: Basophils Percent Auto 0.4 % (0-2); Eosinophils Absolute Auto 0.4 X10*3/uL (0.0-0.4); Eosinophils Percent Auto 4.4 % (0-4); Hematocrit 39.6 % (42.0-52.0); Hemoglobin 13.5 g/dl (14.0-18.0); Imm Gran Abs Auto 0.03 X10*3/uL (0.00-0.03); Imm Gran Pct Auto 0.4 % (0.0-0.4); Lymphocytes Absolute Auto 2.3 X10*3/uL (1.2-4.9); Lymphocytes Percent Auto 28.8 % (20-40); Mean Corpuscular HGB Conc 34.1 g/dl (31.0-36.0); Mean Corpuscular Hemoglobin 29.9 pg (27.0-33.0); Mean Corpuscular Volume 87.8 fL (80.0-98.0); Mean Platelet Volume 9.4 fL (9.4-12.4); Monocytes Absolute Auto 0.4 X10*3/uL (0.1-1.2); Monocytes Percent Auto 4.7 % (2-11); Neutrophils Absolute Auto 4.9 x10*3/uL (2.0-8.3); Neutrophils Percent Auto 61.3 % (45-73); Platelet Count 243 X10*3/uL (160-400); Red Blood Count 4.51 X10*6/uL (4.60-5.80); Red Cell Distribution Width 12.3 % (11.0-16.0)
[2022-12-06 09:54] LABS: Alanine Aminotransferase 17 U/L (0-40); Anion Gap 12 (12-20); Aspartate Amino Transferase 14 U/L (5-37); Blood Urea Nitrogen 15 mg/dL (9-16); Calcium 9.2 mg/dL (8.4-10.2); Carbon Dioxide 29 mmol/L (22-29); Chloride 104 mmol/L (96-108); Cholesterol 276 mg/dL; Estimated Glomerular Filt Rate > 60; Glucose Fasting 116 mg/dL (60-99); HDL Cholesterol 39 mg/dL; LDL Cholesterol Calculated 194 mg/dl; Potassium 4.2 mmol/L (3.3-5.1); Sodium 141 mmol/L (135-145); Triglycerides 217 mg/dL
[2022-12-06 10:01] LABS: TSH reflex Free T4 2.67 uIU/mL (0.32-4.0); Vitamin D 25-OH Total 60.7 ng/mL (>30)
== END 2022-12-06 08:38 | disposition home or self-care (01) ==
LOC: HO.LABR 08:37
PROVIDERS: PCP Internal Medicine; Visit Provider Clinical Nurse Specialist Psychiatric/Mental Health, Adult
DX: Z00.01 Encounter for general adult medical examination with abnormal findings (principal); R00.0 Tachycardia, unspecified; F20.9 Schizophrenia, unspecified; Z79.899 Other long term (current) drug therapy
CPT/HCPCS: 36415; 80048; 80061; 82306; 84443; 84450; 84460; 85025

== ENCOUNTER 2022-12-12 13:17 | Outpatient (AMB) | payer OTHER, SELFPAY ==
--- NOTE | 2022-12-12 14:01 | MHC.PC.OV ---
Vital Signs 12/12/22 14:10 Height 5 ft 11 in Weight 172 lb BMI 24.0 BP 94/62 Blood Pressure Location Lt brachial Position Sitting Pulse 104 H Pulse Source Pulse Oximeter Pulse Oximetry (%) 99 Oxygen Delivery Method Room Air Intake Visit Reasons: discuss recent lab results Intake Note: Pt is here today to discuss recent lab results Allergies No Known Allergies [No Known Allergies*] Allergy (Verified 12/12/22 14:27) Medication List - Last Reconciled 12/12/22 by Malini Melchor MD bupropion HCl 150 mg PO QAM cholecalciferol (vitamin D3) (Vitamin D3) 50 mcg PO DAILY clozapine 300 mg PO BEDTIME ibuprofen mg PO lorazepam 1 mg PO BID metoprolol tartrate 12.5 mg (1/2 x 25 mg) PO BID sennosides-docusate sodium 8.6-50 mg (Stool Softener-Laxative) 1 tab PO BEDTIME Tobacco use date assessed: 12/12/22 [facility] Medical History Constipation Depression Impaired fasting glucose Mixed dyslipidemia Schizophrenia Tachycardia Surgical History No pertinent past surgical history Family History Father No problems noted. Mother Breast cancer Brain cancer Hodgkins disease Maternal Grandmother No problems noted. Maternal Grandfather No problems noted. Paternal Grandmother Lung cancer Smoker Paternal Grandfather No problems noted. Brother No problems noted. Sister No problems noted. Sister No problems noted. Social History Housing: House Alcohol intake: never Patient Tobacco Use Status: Never used Tobacco e-Cigarette/Vaping Use: Never Used service: No Current occupational status: unemployed Cognitive needs: No Hearing needs: No Vision needs: No Questionnaire Thrive Questionnaire Date Thrive assessed: 12/06/21 AUDIT C Alcohol Use Questionnaire (AUDIT-C) 1. How often do you have a drink containing alcohol?: Never Total Score: 0 KIERAN-7 AMB Questionnaire KIERAN-7 Date KIERAN - 7 assessed: 12/06/21 Source: Developed by Drs. Yoan Stevenson, Christin Oreilly, Thompson Wilson and colleagues, with an educational sarah from [employer]. Physical exam (Primary Care) Vital Signs: Last Vital Signs Pulse 104 H 12/12/22 14:10 BP 94/62 12/12/22 14:10 Pulse Ox 99 12/12/22 14:10 Oxygen Delivery Method Room Air 12/12/22 14:10 BMI result Body Mass Index 24.0 Tobacco/Smoking Status: Tobacco use Status Tobacco use date assessed 12/12/22 12/12/22 14:03 Patient Tobacco Use Status Never used Tobacco 12/12/22 14:03 e-Cigarette/Vaping Use Never Used 12/12/22 14:03 Thrive Assessment: Date of Thrive Assessment Date Thrive assessed 12/06/21 12/12/22 14:03 Results Reviewed Results Reviewed: ENTERED: 12/06/224[address] [facility] [address]: Javi Miner REIMBURSEMENT REPRESENTATIVE ORDERED: CBC Auto Diff Test Result Flag Reference Site WBC 8.0 4.8-10.8 X10*3/uL RBC 4.51 L 4.60-5.80 X10*6/uL HGB 13.5 L 14.0-18.0 g/dl HCT 39.6 L 42.0-52.0 % MCV 87.8 80.0-98.0 fL MCH 29.9 27.0-33.0 pg MCHC 34.1 31.0-36.0 g/dl RDW 12.3 11.0-16.0 % PLT 243 160-400 X10*3/uL MPV 9.4 9.4-12.4 fL Neut Pct Auto 61.3 45-73 % ImGran Pct Auto 0.4 0.0-0.4 % Lymp Pct Auto 28.8 20-40 % Hendry Pct Auto 4.7 2-11 % Eos Pct Auto 4.4 H 0-4 % Baso Pct Auto 0.4 0-2 % NRBC Pct Auto 0.0 0.0-0.2 /100WBC ANC Neut Abs # 4.9 2.0-8.3 x10*3/uL ImGran Abs Auto 0.03 0.00-0.03 X10*3/uL Lymph Abs Auto 2.3 1.2-4.9 X10*3/uL Hendry Abs Auto 0.4 0.1-1.2 X10*3/uL Eos Abs Auto 0.4 0.0-0.4 X10*3/uL Baso Abs Auto 0.0 0.0-0.2 X10*3/uL NRBC Abs Auto 0.000 0.0-0.012 X10*3/uL ENTERED: 12/06/22 [facility] DR: Javi Miner NP ORDERED: Met Prof Fast, AST, ALT, Lipid Panel, Vitamin D 25-OH, TSH Rflx Test Result Flag Reference Site Sodium 141 135-145 mmol/L Potassium 4.2 3.3-5.1 mmol/L CL 104 96-108 mmol/L CO2 29 22-29 mmol/L Gap 12 12-20 BUN 15 9-16 mg/dL Creat 1.19 0.5-1.4 mg/dL EGFR > 60 NOTE: For -[place]aur[place] individuals, multiply the result by 1.210. Chronic Kidney Disease: Estimated GFR < 60 mL/min/1.73m2 Severe Kidney Disease: Estimated GFR < 15 mL/min/1.73m2 FBS 116 H 60-99 mg/dL A fasting glucose from 100-125 mg/dl is considered impaired (pre-diabetes). CA 9.2 8.4-10.2 mg/dL AST (GOT) 14 5-37 U/L ALT (GPT) 17 0-40 U/L Triglyceride 217 mg/dL Desirable Triglyceride: less than 150 mg/dL Borderline High Triglyceride 150-199 mg/dL High Triglyceride: 200-499 mg/dL Very High Triglyceride: greater than or equal to 5OO mg/dL Chol 276 mg/dL Desirable Cholesterol: less than 200 mg/dL Borderline High Cholesterol: 200-239 mg/dL High Cholesterol: greater than 239 mg/dL LDL Calculated 194 mg/dl Desirable LDL: less than 100 mg/dL Near Optimal/Above Optimal LDL: 110-129 mg/dL Borderline High LDL: 130-159 mg/dL High LDL: 160-189 mg/dL Very High LDL: greater than or equal to 190 mg/dL HDL 39 mg/dL Desirable HDL: greater than 40 mg/dL Note: This HDL assay may give artificially low results in patients with liver disease. Vit D 25-OH Tot 60.7 >30 ng/mL Health Based Reference Values* < 20 ng/mL Deficient 20-30 ng/mL Insufficient > 30 ng/mL Sufficient *Noé RILEY. N Engl J Med. 2007;357:266-280 Care must be taken in interpreting Vitamin D results from different laboratories and methodologies. Published data demonstrated that results from patients undergoing hemodialysis may show a negative bias when tested with various automated 25-OH vitamin D assays when compared to LC-MS/MS. When testing samples from patients whose predominant form of Vitamin D is Vitamin D2, such as patients receiving Vitamin D2 supplementation, results that are subtherapeutic should be confirmed with another method such as LC-MS/MS. TSH 2.67 0.32-4.0 uIU/mL Assessment and Plan Assessment & Plan (1) Mixed dyslipidemia: Code(s): E78.2 - Mixed hyperlipidemia (2) Impaired fasting glucose: Code(s): R73.01 - Impaired fasting glucose Orders: Orders Alanine Aminotransferase 3 Months E78.2 - Mixed hyperlipidemia, R73.01 - Impaired fasting glucose Aspartate Amino Transferase 3 Months E78.2 - Mixed hyperlipidemia, R73.01 - Impaired fasting glucose Glucose Fasting 3 Months E78.2 - Mixed hyperlipidemia, R73.01 - Impaired fasting glucose Hemoglobin A1c 3 Months E78.2 - Mixed hyperlipidemia, R73.01 - Impaired fasting glucose Lipid Panel 3 Months E78.2 - Mixed hyperlipidemia, R73.01 - Impaired fasting glucose Medications: New rosuvastatin 5 mg PO DAILY 90 tabs 1RF E78.2 - Mixed hyperlipidemia, R73.01 - Impaired fasting glucose Coding Level of Care Code Est Pt Prev Care 18-39y(51447) Diagnoses Mixed dyslipidemia E78.2 Impaired fasting glucose R73.01
[2022-12-12 14:10] VITALS: BP 94/62; PULSE 104; O2SAT 99; BMI 24.0
== END 2022-12-12 14:56 | disposition home or self-care (01) ==
PROVIDERS: PCP Internal Medicine; Visit Provider Internal Medicine
DX: E78.2 Mixed hyperlipidemia (principal); R73.01 Impaired fasting glucose
CPT/HCPCS: 99499

== ENCOUNTER 2023-01-03 09:06 | Outpatient (REF) | payer OTHER, SELFPAY ==
[2023-01-03 09:22] LABS: MANUAL DIFF FLAG NO
[2023-01-03 09:43] LABS: Basophils Percent Auto 0.3 % (0-2); Eosinophils Absolute Auto 0.2 X10*3/uL (0.0-0.4); Eosinophils Percent Auto 2.3 % (0-4); Hemoglobin 12.6 g/dl (14.0-18.0); Imm Gran Abs Auto 0.02 X10*3/uL (0.00-0.03); Imm Gran Pct Auto 0.3 % (0.0-0.4); Lymphocytes Percent Auto 31.2 % (20-40); Mean Corpuscular HGB Conc 33.2 g/dl (31.0-36.0); Mean Corpuscular Hemoglobin 29.3 pg (27.0-33.0); Mean Corpuscular Volume 88.4 fL (80.0-98.0); Mean Platelet Volume 8.9 fL (9.4-12.4); Monocytes Absolute Auto 0.6 X10*3/uL (0.1-1.2); Monocytes Percent Auto 9.4 % (2-11); Neutrophils Absolute Auto 3.7 x10*3/uL (2.0-8.3); Neutrophils Percent Auto 56.5 % (45-73); Platelet Count 202 X10*3/uL (160-400); Red Cell Distribution Width 12.2 % (11.0-16.0); White Blood Count 6.5 X10*3/uL (4.8-10.8)
== END 2023-01-03 09:07 | disposition home or self-care (01) ==
LOC: HO.LABR 09:06
PROVIDERS: PCP Internal Medicine; Visit Provider Clinical Nurse Specialist Psychiatric/Mental Health, Adult
DX: Z79.899 Other long term (current) drug therapy (principal)
CPT/HCPCS: 36415; 85025

== ENCOUNTER 2023-01-31 08:57 | Outpatient (REF) | payer OTHER, SELFPAY ==
[2023-01-31 09:15] LABS: MANUAL DIFF FLAG NO
[2023-01-31 09:50] LABS: Basophils Percent Auto 0.4 % (0-2); Eosinophils Absolute Auto 0.3 X10*3/uL (0.0-0.4); Eosinophils Percent Auto 4.5 % (0-4); Hematocrit 39.2 % (42.0-52.0); Hemoglobin 13.1 g/dl (14.0-18.0); Imm Gran Abs Auto 0.02 X10*3/uL (0.00-0.03); Imm Gran Pct Auto 0.3 % (0.0-0.4); Lymphocytes Absolute Auto 2.2 X10*3/uL (1.2-4.9); Lymphocytes Percent Auto 31.2 % (20-40); Mean Corpuscular HGB Conc 33.4 g/dl (31.0-36.0); Mean Corpuscular Hemoglobin 29.7 pg (27.0-33.0); Mean Corpuscular Volume 88.9 fL (80.0-98.0); Mean Platelet Volume 9.4 fL (9.4-12.4); Monocytes Absolute Auto 0.4 X10*3/uL (0.1-1.2); Monocytes Percent Auto 5.2 % (2-11); Neutrophils Absolute Auto 4.1 x10*3/uL (2.0-8.3); Neutrophils Percent Auto 58.4 % (45-73); Platelet Count 209 X10*3/uL (160-400); Red Blood Count 4.41 X10*6/uL (4.60-5.80); Red Cell Distribution Width 12.2 % (11.0-16.0)
== END 2023-01-31 08:58 | disposition home or self-care (01) ==
LOC: HO.LABR 08:57
PROVIDERS: PCP Internal Medicine; Visit Provider Clinical Nurse Specialist Psychiatric/Mental Health, Adult
DX: Z79.899 Other long term (current) drug therapy (principal)
CPT/HCPCS: 36415; 85025

== ENCOUNTER 2023-02-28 08:55 | Outpatient (REF) | payer OTHER, SELFPAY ==
[2023-02-28 09:08] LABS: MANUAL DIFF FLAG NO
[2023-02-28 09:57] LABS: Basophils Percent Auto 0.3 % (0-2); Eosinophils Absolute Auto 0.3 X10*3/uL (0.0-0.4); Eosinophils Percent Auto 3.6 % (0-4); Hematocrit 39.4 % (42.0-52.0); Hemoglobin 12.8 g/dl (14.0-18.0); Imm Gran Abs Auto 0.04 X10*3/uL (0.00-0.03); Imm Gran Pct Auto 0.4 % (0.0-0.4); Lymphocytes Absolute Auto 2.3 X10*3/uL (1.2-4.9); Lymphocytes Percent Auto 25.1 % (20-40); Mean Corpuscular HGB Conc 32.5 g/dl (31.0-36.0); Mean Corpuscular Hemoglobin 29.4 pg (27.0-33.0); Mean Corpuscular Volume 90.6 fL (80.0-98.0); Mean Platelet Volume 9.8 fL (9.4-12.4); Monocytes Absolute Auto 0.6 X10*3/uL (0.1-1.2); Monocytes Percent Auto 5.9 % (2-11); Neutrophils Percent Auto 64.7 % (45-73); Platelet Count 212 X10*3/uL (160-400); Red Blood Count 4.35 X10*6/uL (4.60-5.80); Red Cell Distribution Width 12.1 % (11.0-16.0); White Blood Count 9.3 X10*3/uL (4.8-10.8)
[2023-02-28 10:07] LABS: Estimated Average Glucose 94 mg/dL; Hemoglobin A1c % 4.9 %
[2023-02-28 10:32] LABS: Alanine Aminotransferase 72 U/L (0-40); Aspartate Amino Transferase 39 U/L (5-37); Cholesterol 164 mg/dL; Glucose Fasting 96 mg/dL (60-99); HDL Cholesterol 39 mg/dL; LDL Cholesterol Calculated 96 mg/dl; Triglycerides 145 mg/dL
== END 2023-02-28 08:56 | disposition home or self-care (01) ==
LOC: HO.LAB 08:55
PROVIDERS: Absent Provider Internal Medicine; PCP Internal Medicine; Visit Provider Clinical Nurse Specialist Psychiatric/Mental Health, Adult
DX: Z79.899 Other long term (current) drug therapy (principal); E78.2 Mixed hyperlipidemia; R73.01 Impaired fasting glucose
CPT/HCPCS: 36415; 80061; 82947; 83036; 84450; 84460; 85025

== ENCOUNTER 2023-03-29 08:56 | Outpatient (REF) | payer OTHER, SELFPAY ==
[2023-03-29 09:14] LABS: MANUAL DIFF FLAG NO
[2023-03-29 10:05] LABS: Basophils Percent Auto 0.3 % (0-2); Eosinophils Absolute Auto 0.3 X10*3/uL (0.0-0.4); Eosinophils Percent Auto 3.2 % (0-4); Hematocrit 38.4 % (42.0-52.0); Hemoglobin 12.6 g/dl (14.0-18.0); Imm Gran Abs Auto 0.02 X10*3/uL (0.00-0.03); Imm Gran Pct Auto 0.2 % (0.0-0.4); Lymphocytes Absolute Auto 2.4 X10*3/uL (1.2-4.9); Lymphocytes Percent Auto 26.8 % (20-40); Mean Corpuscular HGB Conc 32.8 g/dl (31.0-36.0); Mean Corpuscular Hemoglobin 29.2 pg (27.0-33.0); Mean Corpuscular Volume 88.9 fL (80.0-98.0); Mean Platelet Volume 9.6 fL (9.4-12.4); Monocytes Absolute Auto 0.5 X10*3/uL (0.1-1.2); Monocytes Percent Auto 5.3 % (2-11); Neutrophils Absolute Auto 5.8 x10*3/uL (2.0-8.3); Neutrophils Percent Auto 64.2 % (45-73); Platelet Count 210 X10*3/uL (160-400); Red Blood Count 4.32 X10*6/uL (4.60-5.80); Red Cell Distribution Width 12.2 % (11.0-16.0); White Blood Count 9.1 X10*3/uL (4.8-10.8)
== END 2023-03-29 08:57 | disposition home or self-care (01) ==
LOC: HO.LABR 08:56
PROVIDERS: PCP Internal Medicine; Visit Provider Clinical Nurse Specialist Psychiatric/Mental Health, Adult
DX: Z79.899 Other long term (current) drug therapy (principal)
CPT/HCPCS: 36415; 85025

== ENCOUNTER 2023-04-24 09:03 | Outpatient (REF) | payer OTHER, SELFPAY ==
[2023-04-24 09:21] LABS: MANUAL DIFF FLAG NO
[2023-04-24 10:19] LABS: Basophils Percent Auto 0.4 % (0-2); Eosinophils Absolute Auto 0.3 X10*3/uL (0.0-0.4); Eosinophils Percent Auto 3.3 % (0-4); Hematocrit 39.5 % (42.0-52.0); Hemoglobin 12.9 g/dl (14.0-18.0); Imm Gran Abs Auto 0.04 X10*3/uL (0.00-0.03); Imm Gran Pct Auto 0.5 % (0.0-0.4); Lymphocytes Absolute Auto 2.3 X10*3/uL (1.2-4.9); Lymphocytes Percent Auto 28.2 % (20-40); Mean Corpuscular HGB Conc 32.7 g/dl (31.0-36.0); Mean Corpuscular Hemoglobin 29.3 pg (27.0-33.0); Mean Corpuscular Volume 89.8 fL (80.0-98.0); Mean Platelet Volume 9.5 fL (9.4-12.4); Monocytes Absolute Auto 0.4 X10*3/uL (0.1-1.2); Monocytes Percent Auto 4.8 % (2-11); Neutrophils Absolute Auto 5.2 x10*3/uL (2.0-8.3); Neutrophils Percent Auto 62.8 % (45-73); Platelet Count 219 X10*3/uL (160-400); Red Cell Distribution Width 12.2 % (11.0-16.0); White Blood Count 8.3 X10*3/uL (4.8-10.8)
== END 2023-04-24 09:04 | disposition home or self-care (01) ==
LOC: HO.LABR 09:03
PROVIDERS: PCP Internal Medicine; Visit Provider Clinical Nurse Specialist Psychiatric/Mental Health, Adult
DX: Z79.899 Other long term (current) drug therapy (principal)
CPT/HCPCS: 36415; 85025

== ENCOUNTER 2023-05-22 09:08 | Outpatient (REF) | payer OTHER, SELFPAY ==
[2023-05-22 09:32] LABS: MANUAL DIFF FLAG NO
[2023-05-22 10:01] LABS: Basophils Percent Auto 0.4 % (0-2); Eosinophils Absolute Auto 0.2 X10*3/uL (0.0-0.4); Eosinophils Percent Auto 2.6 % (0-4); Hematocrit 38.9 % (42.0-52.0); Imm Gran Abs Auto 0.02 X10*3/uL (0.00-0.03); Imm Gran Pct Auto 0.3 % (0.0-0.4); Lymphocytes Percent Auto 25.7 % (20-40); Mean Corpuscular HGB Conc 33.4 g/dl (31.0-36.0); Mean Corpuscular Hemoglobin 29.8 pg (27.0-33.0); Mean Corpuscular Volume 89.2 fL (80.0-98.0); Mean Platelet Volume 9.2 fL (9.4-12.4); Monocytes Absolute Auto 0.5 X10*3/uL (0.1-1.2); Platelet Count 207 X10*3/uL (160-400); Red Blood Count 4.36 X10*6/uL (4.60-5.80); Red Cell Distribution Width 12.2 % (11.0-16.0); White Blood Count 7.7 X10*3/uL (4.8-10.8)
== END 2023-05-22 09:09 | disposition home or self-care (01) ==
LOC: HO.LABR 09:08
PROVIDERS: PCP Internal Medicine; Visit Provider Clinical Nurse Specialist Psychiatric/Mental Health, Adult
DX: Z79.899 Other long term (current) drug therapy (principal)
CPT/HCPCS: 36415; 85025

== ENCOUNTER 2023-06-18 10:33 | Outpatient (AMB) | payer OTHER, SELFPAY ==
--- NOTE | 2023-06-18 10:58 | A.OFFVIS_ITS ---
Intake Vital Signs 06/18/23 10:59 Height 5 ft 11 in Weight 171 lb 15.369 oz BMI 24.0 BP 110/80 Blood Pressure Location Lt brachial Position Sitting Pulse 94 Intake Visit Reasons: 1 yr f/up echo/ holter Intake Note: 1 year follow up w/ EKG Coal Trammer Required: No Accompanied by: Self / Same As Patient Allergies No Known Allergies [No Known Allergies*] Allergy (Verified 06/18/23 11:01) Medication List - Last Reconciled 06/18/23 by Francois Shaw MD bupropion HCl 150 mg PO QAM cholecalciferol (vitamin D3) (Vitamin D3) 50 mcg PO DAILY clozapine 300 mg PO BEDTIME ibuprofen mg PO lorazepam 1 mg PO BID metoprolol tartrate 12.5 mg (1/2 x 25 mg) PO BID rosuvastatin 5 mg PO DAILY sennosides-docusate sodium 8.6-50 mg (Stool Softener-Laxative) 1 tab PO BEDTIME HPI HPI Comments History of Present Illness Details Jose is here for follow up regarding tachycardia. In the past, routine EKG at PCP's office had shown sinus tachycardia leading to referral. Ot herwise, he has a history of schizophrenia but under good control. No known congenital heart disease or cardiomyopathy or any other major cardiac concerns. Patient came alone to the clinic today. He states he is feeling actually quite good. No cardiac symptoms whatsoever. No chest pains or shortness of breath or racing heart or in fact anything along those lines. He feels very well. [facility] Medical History Anemia Constipation Depression Impaired fasting glucose Mixed dyslipidemia Schizophrenia Tachycardia Surgical History No pertinent past surgical history Family History Father No problems noted. Mother Breast cancer Brain cancer Hodgkins disease Maternal Grandmother No problems noted. Maternal Grandfather No problems noted. Paternal Grandmother Lung cancer Smoker Paternal Grandfather No problems noted. Brother No problems noted. Sister No problems noted. Sister No problems noted. Social History Housing: House Alcohol intake: never Patient Tobacco Use Status: Never used Tobacco e-Cigarette/Vaping Use: Never Used service: No Current occupational status: unemployed Cognitive needs: No Hearing needs: No Vision needs: No Review of Systems Const Denies weakness ENT Denies dizziness Card Denies chest pain, Denies chest pain with activity, Denies syncope, Denies rapid heart rate, Denies pedal edema, Denies edema, Denies leg edema, Denies lightheadedness, Denies palpitations, Denies dyspnea, Denies dyspnea on exertion and Denies orthopnea Resp Denies cough, Denies dyspnea and Denies dyspnea on exertion GI Denies hematochezia and Denies change in stool character Musc Denies abnormal gait, Denies muscle cramps, Denies muscle weakness, Denies numbness, Denies radiating pain into limb and Denies tingling Neuro Denies abnormal gait, Denies dizziness, Denies syncope, Denies numbness, Denies tingling and Denies weakness Endo Denies palpitations Physical Exam Vital Signs: Last Vital Signs Pulse 94 06/18/23 10:59 BP 110/80 06/18/23 10:59 BMI result Body Mass Index 24.0 Const General: comfortable and no acute distress Orientation/consciousness: patient oriented x3 HEENT Other: Unremarkable Head: Yes normal to inspection Neck Neck: Yes normal visual inspection Chest Chest palpation & inspection: normal inspection of the chest Resp Auscultation: clear to auscultation bilaterally Cardio Palpation: normal PMI Heart sounds: S1 normal heart sound present, S2 normal heart sound present, no gallops, no murmurs and no rubs GI Palpation (GI): Soft to palpation Back/Spine/Pelvis Other: unremarkable Skin General skin exam: no rashes or lesions noted Neuro General: patient oriented x3 Extrem General: Yes normal to inspection Psych Mental Status: mental status grossly normal Office Procedures EKG Details: EKG with sinus rhythm at 94/Min; nonspecific ST-T changes; [place]. [id number], Complete Assessment & Plan Assessment & Plan (1) Sinus tachycardia: Code(s): R00.0 - Tachycardia, unspecified (2) Cardiomyopathy: Code(s): I42.9 - Cardiomyopathy, unspecified Qualifiers: Cardiomyopathy type: unspecified Qualified Code(s): I42.9 - Cardiomyopathy, unspecified Plan In the last echocardiogram, LVEF mildly diminished at 50%. Similar findings in the previous echocardiogram as well. In the Holter, underlying rhythm was sinus with an average rate of 88/Min. About 30% the time, ventricular rate greater than 100. Rare PVCs. Overall, mild cardiomyopathy and sinus tachycardia. He is on small dose of beta-surjit and that can be continued. Blood pressure is also on the lower side and hence no changes in dosage. We will recheck in 1 year. Orders: Orders CA echo transthoracic complete 51 Weeks I42.9 - Cardiomyopathy, unspecified ECG 3 day holter monitor 51 Weeks R00.0 - Tachycardia, unspecified Coding Level of Care Code Est Pt Level 3 (47845) Diagnoses Sinus tachycardia R00.0 Cardiomyopathy, unspecified type I42.9 Cardiomyopathy type: unspecified CPT Codes EKG - CPT: 86428-[id number], Complete ([id number])
[2023-06-18 10:59] VITALS: BP 110/80; PULSE 94; BMI 24.0
== END 2023-06-18 11:14 | disposition home or self-care (01) ==
PROVIDERS: PCP Internal Medicine; Visit Provider Internal Medicine
DX: R00.0 Tachycardia, unspecified (principal); I42.9 Cardiomyopathy, unspecified
CPT/HCPCS: 93010; 99213

== ENCOUNTER → 2023-06-18 10:33 | Outpatient (BNVA) | payer OTHER, SELFPAY | PROVIDERS: PCP Internal Medicine; Visit Provider Internal Medicine | DX: I42.9 Cardiomyopathy, unspecified (principal); R00.0 Tachycardia, unspecified | CPT/HCPCS: 93005; 99212 ==

== ENCOUNTER 2023-06-18 11:21 | Outpatient (REF) | payer OTHER, SELFPAY ==
[2023-06-18 11:35] LABS: MANUAL DIFF FLAG NO
[2023-06-18 12:06] LABS: Basophils Absolute Auto 0.1 X10*3/uL (0.0-0.2); Basophils Percent Auto 0.6 % (0-2); Eosinophils Absolute Auto 0.3 X10*3/uL (0.0-0.4); Eosinophils Percent Auto 3.6 % (0-4); Hemoglobin 13.1 g/dl (14.0-18.0); Imm Gran Abs Auto 0.02 X10*3/uL (0.00-0.03); Imm Gran Pct Auto 0.2 % (0.0-0.4); Lymphocytes Percent Auto 24.2 % (20-40); Mean Corpuscular HGB Conc 33.6 g/dl (31.0-36.0); Mean Corpuscular Hemoglobin 29.9 pg (27.0-33.0); Mean Platelet Volume 9.5 fL (9.4-12.4); Monocytes Absolute Auto 0.5 X10*3/uL (0.1-1.2); Monocytes Percent Auto 6.5 % (2-11); Neutrophils Absolute Auto 5.4 x10*3/uL (2.0-8.3); Neutrophils Percent Auto 64.9 % (45-73); Platelet Count 220 X10*3/uL (160-400); Red Blood Count 4.38 X10*6/uL (4.60-5.80); Red Cell Distribution Width 12.3 % (11.0-16.0); White Blood Count 8.3 X10*3/uL (4.8-10.8)
== END 2023-06-18 11:22 | disposition home or self-care (01) ==
LOC: HO.LAB 11:21
PROVIDERS: Visit Provider Clinical Nurse Specialist Psychiatric/Mental Health, Adult
DX: Z79.899 Other long term (current) drug therapy (principal)
CPT/HCPCS: 36415; 85025

== ENCOUNTER 2023-07-19 09:10 | Outpatient (REF) | payer OTHER, SELFPAY ==
[2023-07-19 09:30] LABS: MANUAL DIFF FLAG NO
[2023-07-19 09:41] LABS: Basophils Percent Auto 0.3 % (0-2); Eosinophils Absolute Auto 0.3 X10*3/uL (0.0-0.4); Eosinophils Percent Auto 3.9 % (0-4); Hematocrit 36.9 % (42.0-52.0); Hemoglobin 12.4 g/dl (14.0-18.0); Imm Gran Abs Auto 0.03 X10*3/uL (0.00-0.03); Imm Gran Pct Auto 0.3 % (0.0-0.4); Lymphocytes Absolute Auto 2.1 X10*3/uL (1.2-4.9); Lymphocytes Percent Auto 24.5 % (20-40); Mean Corpuscular HGB Conc 33.6 g/dl (31.0-36.0); Mean Corpuscular Hemoglobin 30.2 pg (27.0-33.0); Mean Corpuscular Volume 89.8 fL (80.0-98.0); Mean Platelet Volume 9.1 fL (9.4-12.4); Monocytes Absolute Auto 0.5 X10*3/uL (0.1-1.2); Monocytes Percent Auto 6.1 % (2-11); Neutrophils Absolute Auto 5.6 x10*3/uL (2.0-8.3); Neutrophils Percent Auto 64.9 % (45-73); Platelet Count 198 X10*3/uL (160-400); Red Blood Count 4.11 X10*6/uL (4.60-5.80); Red Cell Distribution Width 12.4 % (11.0-16.0); White Blood Count 8.7 X10*3/uL (4.8-10.8)
== END 2023-07-19 09:11 | disposition home or self-care (01) ==
LOC: HO.LABR 09:10
PROVIDERS: PCP Internal Medicine; Visit Provider Clinical Nurse Specialist Psychiatric/Mental Health, Adult
DX: Z79.899 Other long term (current) drug therapy (principal)
CPT/HCPCS: 36415; 85025

== ENCOUNTER 2023-08-13 08:58 | Outpatient (REF) | payer OTHER, SELFPAY ==
[2023-08-13 09:17] LABS: MANUAL DIFF FLAG NO
[2023-08-13 09:37] LABS: Basophils Percent Auto 0.3 % (0-2); Eosinophils Absolute Auto 0.4 X10*3/uL (0.0-0.4); Eosinophils Percent Auto 4.3 % (0-4); Hematocrit 39.5 % (42.0-52.0); Hemoglobin 13.5 g/dl (14.0-18.0); Imm Gran Abs Auto 0.04 X10*3/uL (0.00-0.03); Imm Gran Pct Auto 0.4 % (0.0-0.4); Lymphocytes Absolute Auto 2.4 X10*3/uL (1.2-4.9); Lymphocytes Percent Auto 27.3 % (20-40); Mean Corpuscular HGB Conc 34.2 g/dl (31.0-36.0); Mean Corpuscular Hemoglobin 29.7 pg (27.0-33.0); Mean Corpuscular Volume 86.8 fL (80.0-98.0); Monocytes Absolute Auto 0.5 X10*3/uL (0.1-1.2); Monocytes Percent Auto 5.4 % (2-11); Neutrophils Absolute Auto 5.6 x10*3/uL (2.0-8.3); Neutrophils Percent Auto 62.3 % (45-73); Platelet Count 207 X10*3/uL (160-400); Red Blood Count 4.55 X10*6/uL (4.60-5.80); Red Cell Distribution Width 12.4 % (11.0-16.0); White Blood Count 8.9 X10*3/uL (4.8-10.8)
[2023-08-13 10:01] LABS: Alanine Aminotransferase 29 U/L (0-40); Aspartate Amino Transferase 20 U/L (5-37); Cholesterol 177 mg/dL (<200); HDL Cholesterol 39 mg/dL (>40); Iron 93 mcg/dL (45-160); LDL Cholesterol Calculated 99 mg/dL (<100); Percent Iron Saturation 38 % (15-50); Total Iron Binding Capacity 248 mcg/dL (228-428); Triglycerides 195 mg/dL (<150); Unsaturated Iron Binding 155 ug/dL
== END 2023-08-13 08:59 | disposition home or self-care (01) ==
LOC: HO.LAB 08:58
PROVIDERS: PCP Internal Medicine; Visit Provider Clinical Nurse Specialist Psychiatric/Mental Health, Adult
DX: E78.2 Mixed hyperlipidemia (principal); D64.9 Anemia, unspecified; Z79.899 Other long term (current) drug therapy
CPT/HCPCS: 36415; 80061; 83540; 84450; 84460; 85025

== ENCOUNTER 2023-09-10 11:29 | Outpatient (AMB) | payer OTHER, SELFPAY ==
[2023-09-10 11:57] VITALS: BP 122/74; PULSE 80; O2SAT 99; BMI 24.6
--- NOTE | 2023-09-10 11:57 | MHC.PC.OV ---
Vital Signs 09/10/23 11:57 Height 5 ft 11 in Weight 176 lb 8 oz BMI 24.6 BP 122/74 Blood Pressure Location Lt brachial Position Sitting Pulse 80 Pulse Source Pulse Oximeter Pulse Oximetry (%) 99 Oxygen Delivery Method Room Air Intake Visit Reasons: 6m follow up anemia,lipids Intake Note: Pt is here to follow up for lab results Allergies No Known Allergies [No Known Allergies*] Allergy (Verified 09/10/23 12:27) Medication List - Last Reconciled 09/10/23 by Malini Melchor MD bupropion HCl 150 mg PO QAM cholecalciferol (vitamin D3) (Vitamin D3) 50 mcg PO DAILY clozapine 300 mg PO BEDTIME ferrous sulfate 325 mg PO DAILY ibuprofen mg PO lorazepam 1 mg PO BID metoprolol tartrate 12.5 mg (1/2 x 25 mg) PO BID rosuvastatin 5 mg PO DAILY sennosides-docusate sodium 8.6-50 mg (Stool Softener-Laxative) 1 tab PO BEDTIME Tobacco use date assessed: 09/10/23 Dental Screening Dental Screen Date: 09/10/23 Did you have a dental visit in the last 12 months?: Yes Did you have a dental problem in the last 6 months where you did not have access to dental care?: No Was dental information given to patient?: Patient has dentist HPI 6m follow up anemia,lipids HPI Details 38-year-old male with history of schizophrenia, depression, here to follow-up regarding his anemia and mixed dyslipidemia. He has been feeling well with no complaints at present time, denies any chest pain, no palpitations, no shortness of breath or headache or lightheadedness. He no longer takes iron supplements, but has been taking his rosuvastatin 5 mg daily.He had recent fasting labs done which showed higher triglycerides as compared to last check, but LDL cholesterol is normal, low HDL cholesterol seen, and still anemic but improved from last check. [facility] Medical History Anemia Constipation Depression Impaired fasting glucose Mixed dyslipidemia Schizophrenia Tachycardia Surgical History No pertinent past surgical history Family History Father No problems noted. Mother Breast cancer Brain cancer Hodgkins disease Maternal Grandmother No problems noted. Maternal Grandfather No problems noted. Paternal Grandmother Lung cancer Smoker Paternal Grandfather No problems noted. Brother No problems noted. Sister No problems noted. Sister No problems noted. Social History Housing: House Alcohol intake: never Patient Tobacco Use Status: Never used Tobacco e-Cigarette/Vaping Use: Never Used service: No Current occupational status: unemployed Cognitive needs: No Hearing needs: No Vision needs: No Questionnaire PHQ-9 Over the last 2 weeks, how often have you been bothered by any of the following problems? Depression Screening Interpretation: Negative Depression Screening Done: Yes Source: Developed by Drs. Yoan Stevenson, Christin Oreilly, Thompson Wilson and colleagues, with an educational sarah from [employer]. Thrive Questionnaire Date Thrive assessed: 12/06/21 KIERAN-7 AMB Questionnaire KIERAN-7 Date KIERAN - 7 assessed: 12/06/21 Source: Developed by Drs. Yoan Stevenson, Christin Oreilly, Thompson Wilson and colleagues, with an educational sarah from [employer]. Review of Systems Const Denies weakness ENT Denies dizziness Card Denies chest pain, Denies chest pain with activity, Denies syncope, Denies rapid heart rate, Denies leg edema, Denies lightheadedness, Denies palpitations, Denies dyspnea and Denies dyspnea on exertion Resp Denies cough, Denies dyspnea and Denies dyspnea on exertion GI Denies hematochezia and Denies change in stool character Musc Denies abnormal gait, Denies muscle cramps, Denies muscle weakness, Denies numbness and Denies radiating pain into limb Neuro Denies abnormal gait, Denies dizziness, Denies syncope, Denies numbness and Denies weakness Endo Denies palpitations John/Lymph Denies easy bleeding and Denies easy bruising Physical exam (Primary Care) Vital Signs: Last Vital Signs Pulse 80 09/10/23 11:57 BP 122/74 09/10/23 11:57 Pulse Ox 99 09/10/23 11:57 Oxygen Delivery Method Room Air 09/10/23 11:57 BMI result Body Mass Index 24.6 Tobacco/Smoking Status: Tobacco use Status Tobacco use date assessed 09/10/23 09/10/23 12:01 Patient Tobacco Use Status Never used Tobacco 09/10/23 11:57 e-Cigarette/Vaping Use Never Used 09/10/23 11:57 Depression Screening Interpretation: Negative Thrive Assessment: Date of Thrive Assessment Date Thrive assessed 12/06/21 09/10/23 11:57 Const General: cooperative, comfortable and no acute distress Nutritional Appearance: average body habitus HENMT Mouth: moist mucous membranes Eyes General: appearance normal, both eyes and all related structures Neck Neck: Yes full ROM, Yes no lymphadenopathy and Yes supple Thyroid: Thyroid normal Resp Effort & Inspection: normal respiratory effort and able to speak in complete sentences Auscultation: clear to auscultation bilaterally Cardio Other: S1-S2 present, regular rate and rhythm Bruits: no abdominal aortic bruits GI Palpation (GI): No Abdominal aortic bruit present, Soft to palpation, nontender, no guarding and no masses Office Procedures Flu Questionnaire Does the patient have a severe egg allergy?: No Does the patient have severe life threatening allergies?: No Does the patient have a fever or illness today?: No Has the patient ever had Guillain-Hatton Syndrome?: No Has the patient ever had any past reaction to a flu shot?: No Immunizations flu vacc [id number] 6mos up(PF) 60 mcg(15 mcgx4)/0.5 mL IM syringe Performing Provider: Malini Melchor MD [facility] Administered by: Danna Leal CMA on 09/10/23 12:30 Dose Route Admin Location Dispensed Lot Number Expiration Date [facility] Director Telecommunications 0.5 mL IM Left Deltoid 0.5 mL [id number] 03/29/24 72102-401-83 [employer] VIS Given Date VIS Provided VIS Publication Date 09/10/23 Single Vaccine 21 Eligibility Eligibility Date Funding Source Not [facility] Eligible 09/10/23 Private Results Reviewed Results Reviewed: Name: Jose Hernandez Age/Sex: 38/M : 1985 Unit#: [id number] Attend Dr: JAZMÍN PRICE, Re08/13/23 Status: DEP REF Location: .LAB Disch: SPEC : [id number] JANETH: 08/13/23 STATUS: COMP REQ : [id number] RECD: 08/13/[address]: Jazmín Price NP COMP: 08/13/23 ENTERED: 08/13/[address]: ORDERED: CBC Auto Diff Test Result Flag Reference Site WBC 8.9 4.8-10.8 X10*3/uL RBC 4.55 L 4.60-5.80 X10*6/uL HGB 13.5 L 14.0-18.0 g/dl HCT 39.5 L 42.0-52.0 % MCV 86.8 80.0-98.0 fL MCH 29.7 27.0-33.0 pg MCHC 34.2 31.0-36.0 g/dl RDW 12.4 11.0-16.0 % PLT 207 160-400 X10*3/uL Name: Jose Hernandez Age/Sex: 38/M : 1985 Unit#: [id number] Attend Dr: JAZMÍN PRICE, Re08/13/23 Status: DEP REF Location: .LAB Disch: SPEC : [id number] JANETH: 08/13/23 STATUS: COMP REQ : [id number] RECD: 08/13/[address]: Malini Melchor MD COMP: 08/13/23 ENTERED: 08/13/[address] [facility] DR: JAZMÍN PRICE, ORDERED: IRON PROF, AST, ALT, Lipid Panel Test Result Flag Reference Site Iron 93 45-160 mcg/dL TIBC 248 228-428 mcg/dL Saturation 38 15-50 % UIBC 155 ug/dL AST (GOT) 20 5-37 U/L ALT (GPT) 29 0-40 U/L Triglyceride 195 H <150 mg/dL Desirable Triglyceride: less than 150 mg/dL Borderline High Triglyceride 150-199 mg/dL High Triglyceride: 200-499 mg/dL Very High Triglyceride: greater than or equal to 5OO mg/dL Cholesterol 177 <200 mg/dL Desirable Cholesterol: less than 200 mg/dL Borderline High Cholesterol: 200-239 mg/dL High Cholesterol: greater than 239 mg/dL LDL Calculated 99 <100 mg/dL Desirable LDL: less than 100 mg/dL Near Optimal/Above Optimal LDL: 110-129 mg/dL Borderline High LDL: 130-159 mg/dL High LDL: 160-189 mg/dL Very High LDL: greater than or equal to 190 mg/dL HDL 39 L >40 mg/dL Desirable HDL: greater than 40 mg/dL Note: This HDL assay may give artificially low results in patients with liver disease. Assessment and Plan Assessment & Plan (1) Anemia: Code(s): D64.9 - Anemia, unspecified Qualifiers: Anemia type: unspecified type Qualified Code(s): D64.9 - Anemia, unspecified Plan: Will start back on ferrous sulfate 325 mg per tablet to take once a day with orange juice for better absorption. Will recheck another CBC and iron profile in 6 months (2) Mixed dyslipidemia: Code(s): E78.2 - Mixed hyperlipidemia Plan: Reviewed recent fasting lipid profile with patient with levels with higher triglycerides, normal LDL cholesterol and low good cholesterol . Continue with rosuvastatin 5 mg daily , in addition to adherence to low-cholesterol diet and regular exercise, at least 30 minutes 3 to 4 times a week. Advised patient to make healthy food choices, eat more fruits, vegetables, whole grains, wild caught fish and low-fat dairy. Limit amount of meat and fried or fatty food products, as well as processed foods and fast foods. Follow-up scheduled with repeat fasting lipid panel in 6 months. (3) Flu vaccine need: Code(s): Z23 - Encounter for immunization Plan: Flu vaccine given today Orders: Orders Aspartate Amino Transferase 6 Months D64.9 - Anemia, unspecified, E78.2 - Mixed hyperlipidemia IRON PROFILE 6 Months D64.9 - Anemia, unspecified, E78.2 - Mixed hyperlipidemia Lipid Panel 6 Months D64.9 - Anemia, unspecified, E78.2 - Mixed hyperlipidemia Alanine Aminotransferase 6 Months D64.9 - Anemia, unspecified, E78.2 - Mixed hyperlipidemia Complete Blood Count Auto Diff 6 Months D64.9 - Anemia, unspecified, E78.2 - Mixed hyperlipidemia Vitamin D 25-OH Total 6 Months D64.9 - Anemia, unspecified, E78.2 - Mixed hyperlipidemia, Z86.39 - Personal history of other endocrine, nutritional and metabolic disease Medications: New ferrous sulfate 325 mg PO DAILY 30 tabs 3RF Coding Level of Care Code Est Pt Level 4 (94110) Diagnoses Anemia, unspecified type D64.9 Anemia type: unspecified type Mixed dyslipidemia E78.2 Flu vaccine need Z23
== END 2023-09-10 12:33 | disposition home or self-care (01) ==
PROVIDERS: PCP Internal Medicine; Visit Provider Internal Medicine
DX: D64.9 Anemia, unspecified (principal); E78.2 Mixed hyperlipidemia; Z23 Encounter for immunization; F20.9 Schizophrenia, unspecified
CPT/HCPCS: 90471; 90686; 99214

== ENCOUNTER 2023-09-11 09:07 | Outpatient (REF) | payer OTHER, SELFPAY ==
[2023-09-11 09:36] LABS: MANUAL DIFF FLAG NO
[2023-09-11 10:30] LABS: Basophils Percent Auto 0.4 % (0-2); Eosinophils Absolute Auto 0.3 X10*3/uL (0.0-0.4); Eosinophils Percent Auto 3.3 % (0-4); Hematocrit 38.8 % (42.0-52.0); Hemoglobin 12.6 g/dl (14.0-18.0); Imm Gran Abs Auto 0.02 X10*3/uL (0.00-0.03); Imm Gran Pct Auto 0.3 % (0.0-0.4); Lymphocytes Absolute Auto 1.7 X10*3/uL (1.2-4.9); Lymphocytes Percent Auto 21.1 % (20-40); Mean Corpuscular HGB Conc 32.5 g/dl (31.0-36.0); Mean Corpuscular Hemoglobin 29.2 pg (27.0-33.0); Mean Platelet Volume 9.7 fL (9.4-12.4); Monocytes Absolute Auto 0.6 X10*3/uL (0.1-1.2); Neutrophils Absolute Auto 5.4 x10*3/uL (2.0-8.3); Neutrophils Percent Auto 66.9 % (45-73); Platelet Count 205 X10*3/uL (160-400); Red Blood Count 4.31 X10*6/uL (4.60-5.80); Red Cell Distribution Width 12.2 % (11.0-16.0)
== END 2023-09-11 09:08 | disposition home or self-care (01) ==
LOC: HO.LABR 09:07
PROVIDERS: PCP Internal Medicine; Visit Provider Clinical Nurse Specialist Psychiatric/Mental Health, Adult
DX: Z79.899 Other long term (current) drug therapy (principal)
CPT/HCPCS: 36415; 85025

== ENCOUNTER 2023-10-09 08:54 | Outpatient (REF) | payer OTHER, SELFPAY ==
[2023-10-09 09:11] LABS: MANUAL DIFF FLAG NO
[2023-10-09 09:53] LABS: Basophils Percent Auto 0.4 % (0-2); Eosinophils Absolute Auto 0.2 X10*3/uL (0.0-0.4); Eosinophils Percent Auto 2.3 % (0-4); Hematocrit 38.4 % (42.0-52.0); Hemoglobin 12.9 g/dl (14.0-18.0); Imm Gran Abs Auto 0.03 X10*3/uL (0.00-0.03); Imm Gran Pct Auto 0.4 % (0.0-0.4); Lymphocytes Absolute Auto 1.9 X10*3/uL (1.2-4.9); Lymphocytes Percent Auto 25.3 % (20-40); Mean Corpuscular HGB Conc 33.6 g/dl (31.0-36.0); Mean Corpuscular Hemoglobin 30.3 pg (27.0-33.0); Mean Corpuscular Volume 90.1 fL (80.0-98.0); Monocytes Absolute Auto 0.4 X10*3/uL (0.1-1.2); Monocytes Percent Auto 5.4 % (2-11); Neutrophils Absolute Auto 4.9 x10*3/uL (2.0-8.3); Neutrophils Percent Auto 66.2 % (45-73); Platelet Count 221 X10*3/uL (160-400); Red Blood Count 4.26 X10*6/uL (4.60-5.80); Red Cell Distribution Width 12.5 % (11.0-16.0); White Blood Count 7.4 X10*3/uL (4.8-10.8)
== END 2023-10-09 08:55 | disposition home or self-care (01) ==
LOC: HO.LABR 08:54
PROVIDERS: PCP Internal Medicine; Visit Provider Clinical Nurse Specialist Psychiatric/Mental Health, Adult
DX: Z79.899 Other long term (current) drug therapy (principal)
CPT/HCPCS: 36415; 85025

== ENCOUNTER 2023-11-08 08:55 | Outpatient (REF) | payer OTHER, SELFPAY ==
[2023-11-08 09:13] LABS: MANUAL DIFF FLAG NO
[2023-11-08 10:07] LABS: Basophils Percent Auto 0.4 % (0-2); Eosinophils Absolute Auto 0.3 X10*3/uL (0.0-0.4); Eosinophils Percent Auto 3.5 % (0-4); Hematocrit 38.5 % (42.0-52.0); Hemoglobin 12.8 g/dl (14.0-18.0); Imm Gran Abs Auto 0.03 X10*3/uL (0.00-0.03); Imm Gran Pct Auto 0.4 % (0.0-0.4); Lymphocytes Absolute Auto 2.1 X10*3/uL (1.2-4.9); Lymphocytes Percent Auto 26.9 % (20-40); Mean Corpuscular HGB Conc 33.2 g/dl (31.0-36.0); Mean Corpuscular Volume 90.2 fL (80.0-98.0); Mean Platelet Volume 9.3 fL (9.4-12.4); Monocytes Absolute Auto 0.5 X10*3/uL (0.1-1.2); Monocytes Percent Auto 6.1 % (2-11); Neutrophils Absolute Auto 4.8 x10*3/uL (2.0-8.3); Neutrophils Percent Auto 62.7 % (45-73); Platelet Count 207 X10*3/uL (160-400); Red Blood Count 4.27 X10*6/uL (4.60-5.80); Red Cell Distribution Width 12.3 % (11.0-16.0); White Blood Count 7.7 X10*3/uL (4.8-10.8)
== END 2023-11-08 08:56 | disposition home or self-care (01) ==
LOC: HO.LABR 08:55
PROVIDERS: Visit Provider Clinical Nurse Specialist Psychiatric/Mental Health, Adult
DX: Z79.899 Other long term (current) drug therapy (principal)
CPT/HCPCS: 36415; 85025

== ENCOUNTER 2023-12-04 09:00 | Outpatient (REF) | payer OTHER, SELFPAY ==
[2023-12-04 09:19] LABS: MANUAL DIFF FLAG NO
[2023-12-04 09:36] LABS: Basophils Percent Auto 0.4 % (0-2); Eosinophils Absolute Auto 0.3 X10*3/uL (0.0-0.4); Eosinophils Percent Auto 3.5 % (0-4); Hematocrit 39.2 % (42.0-52.0); Hemoglobin 13.1 g/dl (14.0-18.0); Imm Gran Abs Auto 0.03 X10*3/uL (0.00-0.03); Imm Gran Pct Auto 0.4 % (0.0-0.4); Lymphocytes Absolute Auto 2.2 X10*3/uL (1.2-4.9); Lymphocytes Percent Auto 27.5 % (20-40); Mean Corpuscular HGB Conc 33.4 g/dl (31.0-36.0); Mean Corpuscular Hemoglobin 29.6 pg (27.0-33.0); Mean Corpuscular Volume 88.7 fL (80.0-98.0); Monocytes Absolute Auto 0.5 X10*3/uL (0.1-1.2); Monocytes Percent Auto 5.8 % (2-11); Neutrophils Absolute Auto 4.9 x10*3/uL (2.0-8.3); Neutrophils Percent Auto 62.4 % (45-73); Platelet Count 199 X10*3/uL (160-400); Red Blood Count 4.42 X10*6/uL (4.60-5.80); Red Cell Distribution Width 12.3 % (11.0-16.0); White Blood Count 7.9 X10*3/uL (4.8-10.8)
== END 2023-12-04 09:01 | disposition home or self-care (01) ==
LOC: HO.LABR 09:00
PROVIDERS: PCP Internal Medicine; Visit Provider Clinical Nurse Specialist Psychiatric/Mental Health, Adult
DX: Z79.899 Other long term (current) drug therapy (principal)
CPT/HCPCS: 36415; 85025

== ENCOUNTER 2024-01-08 08:43 | Outpatient (REF) | payer OTHER, SELFPAY ==
[2024-01-08 08:59] LABS: MANUAL DIFF FLAG NO
[2024-01-08 09:27] LABS: Basophils Percent Auto 0.4 % (0-2); Eosinophils Absolute Auto 0.3 X10*3/uL (0.0-0.4); Eosinophils Percent Auto 3.1 % (0-4); Hematocrit 38.5 % (42.0-52.0); Hemoglobin 13.3 g/dl (14.0-18.0); Imm Gran Abs Auto 0.03 X10*3/uL (0.00-0.03); Imm Gran Pct Auto 0.4 % (0.0-0.4); Lymphocytes Absolute Auto 2.3 X10*3/uL (1.2-4.9); Mean Corpuscular HGB Conc 34.5 g/dl (31.0-36.0); Mean Corpuscular Hemoglobin 30.7 pg (27.0-33.0); Mean Corpuscular Volume 88.9 fL (80.0-98.0); Mean Platelet Volume 9.2 fL (9.4-12.4); Monocytes Absolute Auto 0.5 X10*3/uL (0.1-1.2); Monocytes Percent Auto 6.1 % (2-11); Neutrophils Absolute Auto 5.3 x10*3/uL (2.0-8.3); Platelet Count 212 X10*3/uL (160-400); Red Blood Count 4.33 X10*6/uL (4.60-5.80); Red Cell Distribution Width 12.4 % (11.0-16.0); White Blood Count 8.4 X10*3/uL (4.8-10.8)
== END 2024-01-08 08:44 | disposition home or self-care (01) ==
LOC: HO.LABR 08:43
PROVIDERS: Visit Provider Clinical Nurse Specialist Psychiatric/Mental Health, Adult
DX: Z79.899 Other long term (current) drug therapy (principal)
CPT/HCPCS: 36415; 85025

== ENCOUNTER 2024-02-07 09:07 | Outpatient (REF) | payer OTHER, SELFPAY ==
[2024-02-07 09:18] LABS: MANUAL DIFF FLAG NO
[2024-02-07 09:34] LABS: Basophils Percent Auto 0.4 % (0-2); Eosinophils Absolute Auto 0.3 X10*3/uL (0.0-0.4); Eosinophils Percent Auto 3.2 % (0-4); Hematocrit 38.5 % (42.0-52.0); Hemoglobin 13.2 g/dl (14.0-18.0); Imm Gran Abs Auto 0.04 X10*3/uL (0.00-0.03); Imm Gran Pct Auto 0.5 % (0.0-0.4); Lymphocytes Percent Auto 24.4 % (20-40); Mean Corpuscular HGB Conc 34.3 g/dl (31.0-36.0); Mean Corpuscular Hemoglobin 30.3 pg (27.0-33.0); Mean Corpuscular Volume 88.5 fL (80.0-98.0); Mean Platelet Volume 9.1 fL (9.4-12.4); Monocytes Absolute Auto 0.5 X10*3/uL (0.1-1.2); Monocytes Percent Auto 6.2 % (2-11); Neutrophils Absolute Auto 5.5 x10*3/uL (2.0-8.3); Neutrophils Percent Auto 65.3 % (45-73); Platelet Count 211 X10*3/uL (160-400); Red Blood Count 4.35 X10*6/uL (4.60-5.80); Red Cell Distribution Width 12.1 % (11.0-16.0); White Blood Count 8.4 X10*3/uL (4.8-10.8)
[2024-02-07 10:17] LABS: Alanine Aminotransferase 37 U/L (0-40); Aspartate Amino Transferase 27 U/L (5-37); Cholesterol 164 mg/dL (<200); HDL Cholesterol 38 mg/dL (>40); Iron 72 mcg/dL (45-160); LDL Cholesterol Calculated 88 mg/dL (<100); Percent Iron Saturation 30 % (15-50); Total Iron Binding Capacity 243 mcg/dL (228-428); Triglycerides 191 mg/dL (<150); Unsaturated Iron Binding 171 ug/dL
[2024-02-07 10:28] LABS: Vitamin D 25-OH Total 72.2 ng/mL (>30)
== END 2024-02-07 09:08 | disposition home or self-care (01) ==
LOC: HO.LAB 09:07
PROVIDERS: Absent Provider Clinical Nurse Specialist Psychiatric/Mental Health, Adult; PCP Internal Medicine; Visit Provider Internal Medicine
DX: D64.9 Anemia, unspecified (principal); E78.2 Mixed hyperlipidemia; Z86.39 Personal history of other endocrine, nutritional and metabolic disease; Z79.899 Other long term (current) drug therapy
CPT/HCPCS: 36415; 80061; 82306; 83540; 84450; 84460; 85025

== ENCOUNTER 2024-03-04 09:04 | Outpatient (REF) | payer OTHER, SELFPAY ==
[2024-03-04 09:14] LABS: MANUAL DIFF FLAG NO
[2024-03-04 09:40] LABS: Basophils Percent Auto 0.3 % (0-2); Eosinophils Absolute Auto 0.4 X10*3/uL (0.0-0.4); Eosinophils Percent Auto 4.4 % (0-4); Hematocrit 39.3 % (42.0-52.0); Hemoglobin 13.1 g/dl (14.0-18.0); Imm Gran Abs Auto 0.04 X10*3/uL (0.00-0.03); Imm Gran Pct Auto 0.4 % (0.0-0.4); Lymphocytes Absolute Auto 2.2 X10*3/uL (1.2-4.9); Lymphocytes Percent Auto 23.7 % (20-40); Mean Corpuscular HGB Conc 33.3 g/dl (31.0-36.0); Mean Corpuscular Hemoglobin 30.1 pg (27.0-33.0); Mean Corpuscular Volume 90.3 fL (80.0-98.0); Mean Platelet Volume 9.2 fL (9.4-12.4); Monocytes Absolute Auto 0.5 X10*3/uL (0.1-1.2); Monocytes Percent Auto 5.6 % (2-11); Neutrophils Percent Auto 65.6 % (45-73); Platelet Count 198 X10*3/uL (160-400); Red Blood Count 4.35 X10*6/uL (4.60-5.80); Red Cell Distribution Width 12.2 % (11.0-16.0); White Blood Count 9.1 X10*3/uL (4.8-10.8)
== END 2024-03-04 09:05 | disposition home or self-care (01) ==
LOC: HO.LABR 09:04
PROVIDERS: PCP Internal Medicine; Visit Provider Clinical Nurse Specialist Psychiatric/Mental Health, Adult
DX: Z79.899 Other long term (current) drug therapy (principal)
CPT/HCPCS: 36415; 85025

== ENCOUNTER 2024-03-12 13:01 | Outpatient (AMB) | payer OTHER, SELFPAY ==
[2024-03-12 13:05] VITALS: BP 110/70; PULSE 86; O2SAT 97; BMI 24.8
--- NOTE | 2024-03-12 13:05 | MHC.PC.OV ---
Vital Signs 03/12/24 13:05 Height 5 ft 11 in Weight 178 lb BMI 24.8 BP 110/70 Blood Pressure Location Rt brachial Position Sitting Pulse 86 Pulse Source Pulse Oximeter Pulse Oximetry (%) 97 Intake Visit Reasons: Annual PE Intake Note: pt is here for physical exam Poultry Hanger Required: No Accompanied by: Self / Same As Patient Allergies No Known Allergies [No Known Allergies*] Allergy (Verified 03/12/24 13:13) Medication List - Last Reconciled 03/12/24 by Malini Melchor MD bupropion HCl XL 150 mg PO QAM cholecalciferol (vitamin D3) (Vitamin D3) 50 mcg PO DAILY clozapine 300 mg PO BEDTIME ferrous sulfate 325 mg PO DAILY ibuprofen mg PO lorazepam 1 mg PO BID metoprolol tartrate 12.5 mg (1/2 x 25 mg) PO BID rosuvastatin 5 mg PO DAILY sennosides-docusate sodium 8.6-50 mg (Stool Softener-Laxative) 1 tab PO BEDTIME Tobacco use date assessed: 03/12/24 Dental Screening Dental Screen Date: 03/12/24 Did you have a dental visit in the last 12 months?: Yes Did you have a dental problem in the last 6 months where you did not have access to dental care?: No Was dental information given to patient?: Patient has dentist HPI Annual PE HPI Details 39-year-old male here today for physical exam. He has anemia currently on ferrous sulfate supplements. Currently followed by psychiatry for treatment of his schizophrenia/depression, currently takes rosuvastatin 5 mg daily for his mixed dyslipidemia. And is currently taking metoprolol tartrate 12.5 mg twice a day for treatment of cardiomyopathy/sinus tachycardia, and is currently followed yearly by Cardiology. He has been feeling well with no complaints at present time. [facility] Medical History (Updated 03/29/24 @ 20:48 by Malini Melchor MD) Anemia Impaired fasting glucose Mixed dyslipidemia Constipation Depression Schizophrenia Surgical History No pertinent past surgical history Family History Father No problems noted. Mother Breast cancer Brain cancer Hodgkins disease Maternal Grandmother No problems noted. Maternal Grandfather No problems noted. Paternal Grandmother Lung cancer Smoker Paternal Grandfather No problems noted. Brother No problems noted. Sister No problems noted. Sister No problems noted. Social History Housing: House Alcohol intake: never Patient Tobacco Use Status: Never used Tobacco e-Cigarette/Vaping Use: Never Used service: No Current occupational status: unemployed Cognitive needs: No Hearing needs: No Vision needs: No Questionnaire PHQ-9 Over the last 2 weeks, how often have you been bothered by any of the following problems? 1. Little interest or pleasure in doing things: several days 2. Feeling down, depressed, or hopeless: not at all 3. Trouble falling or staying asleep, or sleeping too much: not at all 4. Feeling tired or having little energy: not at all 5. Poor appetite or overeating: not at all 6. Feeling bad about yourself - or that you are a failure or have let yourself or your family down: not at all 7. Trouble concentrating on things, such as reading the newspaper or watching television: not at all 8. Moving or speaking so slowly that other people could have noticed. Or the opposite - being so fidgety or restless that you have been moving around a lot more than usual: not at all 9. Thoughts that you would be better off or of hurting yourself in some way: not at all Total score: 1 Depression Screening Interpretation: Negative Depression Screening Done: Yes 95695 - PHQ-9 Billing: Yes Source: Developed by Drs. Yoan Stevenson, Christin Oreilly, Thompson Wilson and colleagues, with an educational sarah from [employer]. Thrive Questionnaire Date Thrive assessed: 03/12/24 I am a: Patient What is your living situation today?: I have a steady place to live Within the past 12 months, did the food you bought not last and you didn't have the money to get more?: Never true Within the past 12 months, did you worry whether your food would run out before you got money to buy more?: Never true Do you have trouble paying for medicines?: No Do you have trouble getting transportation to medical appointments?: No Do you have trouble paying your heating and electricity bill?: No Do you have trouble taking care of your child, family member or friend?: No Do you have trouble with day-to-day activities such as bathing, preparing meals, shopping, managing finances, etc.?: No Are you currently unemployed and looking for a job?: No Are you interested in more education?: No Please select the resources that you would like help with: None Currently or been in a relationship where the following occur: no concerns reported THRIVE Score: 0 AUDIT C Alcohol Use Questionnaire (AUDIT-C) 1. How often do you have a drink containing alcohol?: Never Total Score: 0 Score Reviewed/Action Taken: Yes KIERAN-7 AMB Questionnaire KIERAN-7 Date KIERAN - 7 assessed: 03/12/24 Feeling nervous, anxious, or on edge: 0 = Not at all Not being able to stop or control worryin = Not at all Worrying too much about different things: 0 = Not at all Trouble relaxin = Not at all Being so restless that it is hard to sit still: 0 = Not at all Becoming easily annoyed or irritable: 0 = Not at all Feeling afraid as if something awful might happen: 0 = Not at all Total KIERAN-7 score (0-4 normal; 5-9 mild; 10-14 moderate; 15-21 severe): 0 Source: Developed by Drs. Yoan Stevenson, Christin Oreilly, Thompson Wilson and colleagues, with an educational sarah from [employer]. KIERAN-7 Assessment Billing KIERAN-7 Assessment Tool: KIERAN-7 Assessment 99282 Review of Systems Const Denies weakness Eyes Reports no additional complaints ENT Denies dizziness Card Denies chest pain, Denies chest pain with activity, Denies syncope, Denies rapid heart rate, Denies leg edema, Denies lightheadedness, Denies palpitations, Denies dyspnea and Denies dyspnea on exertion Resp Denies cough, Denies dyspnea and Denies dyspnea on exertion GI Denies hematochezia and Denies change in stool character Reports no additional complaints Musc Denies abnormal gait, Denies muscle cramps, Denies muscle weakness, Denies numbness and Denies radiating pain into limb Skin/Breast Denies lesions and Denies rash Neuro Denies abnormal gait, Denies dizziness, Denies syncope, Denies numbness and Denies weakness Psych Reports as per HPI Endo Denies palpitations John/Lymph Denies easy bleeding and Denies easy bruising Aller/Immun Reports no additional complaints Physical exam (Primary Care) Vital Signs: Last Vital Signs Pulse 86 03/12/24 13:05 BP 110/70 03/12/24 13:05 Pulse Ox 97 03/12/24 13:05 BMI result Body Mass Index 24.8 Tobacco/Smoking Status: Tobacco use Status Tobacco use date assessed 03/12/24 03/12/24 13:08 Patient Tobacco Use Status Never used Tobacco 03/12/24 13:08 e-Cigarette/Vaping Use Never Used 03/12/24 13:08 PHQ-9: PHQ-9 Score PHQ-9: Total score 1 03/12/24 13:39 Depression Screening Interpretation: Negative Thrive Assessment: Date of Thrive Assessment Date Thrive assessed 03/12/24 03/12/24 13:08 Currently or been in a relationship where the following occur: no concerns reported Const General: cooperative, comfortable and no acute distress Nutritional Appearance: average body habitus Orientation/consciousness: patient oriented x3 HENMT Mouth: moist mucous membranes Eyes General: appearance normal, both eyes and all related structures Neck Neck: Yes full ROM, Yes no lymphadenopathy and Yes supple Thyroid: Thyroid normal Chest Chest palpation & inspection: normal inspection of the chest and normal palpation of entire chest wall Resp Effort & Inspection: normal respiratory effort and able to speak in complete sentences Auscultation: clear to auscultation bilaterally Cardio Other: S1-S2 present, regular rate and rhythm Bruits: no abdominal aortic bruits GI Palpation (GI): No Abdominal aortic bruit present, Soft to palpation, nontender, no guarding and no masses General: Yes no CVA tenderness Male General Exam: Yes normal external exam Back/Spine/Pelvis Back: no CVA tenderness and No back tenderness Skin General skin exam: no rashes or lesions noted Neuro General: patient oriented x3, gait normal, tone normal, moves all extremities, Normal light touch and pain sensation and no focal motor deficits Extrem General: Yes full ROM, Yes no joint enlargement, Yes no clubbing, cyanosis or edema and Yes normal gait Psych Appearance: grossly normal and well kempt Mental Status: mental status grossly normal Speech and movement: Normal speech and movement present Affect: normal affect Results Reviewed Results Reviewed: Name: MaryJose Age/Sex: 39/M : 1985 Unit#: [id number] Attend Dr: Javi Miner [employer] WORKER Re03/04/24 Status: DEP REF Location: [facility] Disch: SPEC : [id number] JANETH: 03/04/24 STATUS: COMP REQ : [id number] RECD: 03/04/[address]: Javi Miner [employer] COMP: 03/04/24 ENTERED: 03/04/[address]: Malini Melchor MD ORDERED: CBC Auto Diff Test Result Flag Reference WBC 9.1 4.8-10.8 X10*3/uL RBC 4.35 L 4.60-5.80 X10*6/uL HGB 13.1 L 14.0-18.0 g/dl HCT 39.3 L 42.0-52.0 % MCV 90.3 80.0-98.0 fL MCH 30.1 27.0-33.0 pg MCHC 33.3 31.0-36.0 g/dl RDW 12.2 11.0-16.0 % PLT 198 160-400 X10*3/uL MPV 9.2 L 9.4-12.4 fL Neut Pct Auto 65.6 45-73 % ImGran Pct Auto 0.4 0.0-0.4 % Lymp Pct Auto 23.7 20-40 % [place] Pct Auto 5.6 2-11 % Eos Pct Auto 4.4 H 0-4 % Baso Pct Auto 0.3 0-2 % NRBC Pct Auto 0.0 0.0-0.2 /100WBC ANC Neut Abs # 6.0 2.0-8.3 x10*3/uL ImGran Abs Auto 0.04 H 0.00-0.03 X10*3/uL Lymph Abs Auto 2.2 1.2-4.9 X10*3/uL [place] Abs Auto 0.5 0.1-1.2 X10*3/uL Eos Abs Auto 0.4 0.0-0.4 X10*3/uL Baso Abs Auto 0.0 0.0-0.2 X10*3/uL NRBC Abs Auto 0.000 0.0-0.012 X10*3/uL Name: Jose Hernandez Age/Sex: 39/M : 1985 Unit#: [id number] Attend Dr: Malini Melchor MD Re02/07/24 Status: DEP [facility]F [facility] Disch: SPEC : [id number] JANETH: 02/07/24 STATUS: COMP REQ : [id number] RECD: 02/07/[address]: Malini Melchor MD COMP: 02/07/24 ENTERED: 02/07/[address]: ORDERED: IRON PROF, AST, ALT, Lipid Panel, Vitamin D 25-OH Test Result Flag Reference Iron 72 45-160 mcg/dL TIBC 243 228-428 mcg/dL Saturation 30 15-50 % UIBC 171 ug/dL AST (GOT) 27 5-37 U/L ALT (GPT) 37 0-40 U/L Triglyceride 191 H <150 mg/dL Desirable Triglyceride: less than 150 mg/dL Borderline High Triglyceride 150-199 mg/dL High Triglyceride: 200-499 mg/dL Very High Triglyceride: greater than or equal to 5OO mg/dL Cholesterol 164 <200 mg/dL Desirable Cholesterol: less than 200 mg/dL Borderline High Cholesterol: 200-239 mg/dL High Cholesterol: greater than 239 mg/dL LDL Calculated 88 <100 mg/dL Desirable LDL: less than 100 mg/dL Near Optimal/Above Optimal LDL: 110-129 mg/dL Borderline High LDL: 130-159 mg/dL High LDL: 160-189 mg/dL Very High LDL: greater than or equal to 190 mg/dL HDL 38 L >40 mg/dL Desirable HDL: greater than 40 mg/dL Note: This HDL assay may give artificially low results in patients with liver disease. Vit D 25-OH Tot 72.2 >30 ng/mL Health Based Reference Values* < 20 ng/mL Deficient 20-30 ng/mL Insufficient > 30 ng/mL Sufficient Assessment and Plan Assessment & Plan (1) Mixed dyslipidemia: Code(s): E78.2 - Mixed hyperlipidemia Plan: In recent fasting lipids are within normal limits, continue with rosuvastatin 5 mg daily (2) Anemia: Code(s): D64.9 - Anemia, unspecified Qualifiers: Anemia type: unspecified type Qualified Code(s): D64.9 - Anemia, unspecified Plan: Mild anemia still present, continue ferrous sulfate 325 mg once a day (3) Schizophrenia: Comment: seetristen Cade/ Javi Miner Code(s): F20.9 - Schizophrenia, unspecified (4) Cardiomyopathy: Code(s): I42.9 - Cardiomyopathy, unspecified Qualifiers: Cardiomyopathy type: unspecified Qualified Code(s): I42.9 - Cardiomyopathy, unspecified Plan: Continue on metoprolol tartrate 12.5 mg twice a day followed by cardiology (5) Annual visit for general adult medical examination with abnormal findings: Code(s): Z00.01 - Encounter for general adult medical examination with abnormal findings Plan: Fasting la results discussed with patient. Continue with regular dental visit every 6 months and regular eye exams, at least every 2 years. Take adequate calcium in diet and vitamin-D 3 at 2000 IU per cap once a day, in addition to weight-bearing exercises to help maintain good muscle tone and weight control. Instructed to do self testicular exam to check for any mass. He is up-to-date with his Tdap, gets yearly flu shots, has had COVID vaccines in the past but has not yet had the booster. Orders: Orders Complete Blood Count Auto Diff 03/07/25 D64.9 - Anemia, unspecified, E78.2 - Mixed hyperlipidemia, Z13.1 - Encounter for screening for diabetes mellitus Lipid Panel 03/07/25 D64.9 - Anemia, unspecified, E78.2 - Mixed hyperlipidemia, Z13.1 - Encounter for screening for diabetes mellitus Alanine Aminotransferase 03/07/25 D64.9 - Anemia, unspecified, E78.2 - Mixed hyperlipidemia, Z13.1 - Encounter for screening for diabetes mellitus Basic Metabolic Panel Fasting 03/07/25 D64.9 - Anemia, unspecified, E78.2 - Mixed hyperlipidemia, Z13.1 - Encounter for screening for diabetes mellitus IRON PROFILE 03/07/25 D64.9 - Anemia, unspecified, E78.2 - Mixed hyperlipidemia, Z13.1 - Encounter for screening for diabetes mellitus Aspartate Amino Transferase 03/07/25 D64.9 - Anemia, unspecified, E78.2 - Mixed hyperlipidemia, Z13.1 - Encounter for screening for diabetes mellitus Coding Level of Care Code Est Pt Prev Care 40-64y(90213) Diagnoses Mixed dyslipidemia E78.2 Anemia, unspecified type D64.9 Anemia type: unspecified type Schizophrenia F20.9 Cardiomyopathy, unspecified type I42.9 Cardiomyopathy type: unspecified Annual visit for general adult medical examination with abnormal findings Z00.01 Additional Codes KIERAN-7 Assessment Billing - KIERAN-7 Assessment Tool: KIERAN-7 Assessment [id number] ([id number])
== END 2024-03-12 13:39 | disposition home or self-care (01) ==
PROVIDERS: PCP Internal Medicine; Visit Provider Internal Medicine
DX: Z00.00 Encounter for general adult medical examination without abnormal findings (principal); F20.9 Schizophrenia, unspecified; I42.9 Cardiomyopathy, unspecified; E78.2 Mixed hyperlipidemia; D64.9 Anemia, unspecified
CPT/HCPCS: 99396

== ENCOUNTER 2024-04-01 08:45 | Outpatient (REF) | payer OTHER, SELFPAY ==
[2024-04-01 09:02] LABS: MANUAL DIFF FLAG NO
[2024-04-01 09:10] LABS: Basophils Percent Auto 0.4 % (0-2); Eosinophils Absolute Auto 0.3 X10*3/uL (0.0-0.4); Eosinophils Percent Auto 4.2 % (0-4); Hematocrit 37.2 % (42.0-52.0); Imm Gran Abs Auto 0.02 X10*3/uL (0.00-0.03); Imm Gran Pct Auto 0.3 % (0.0-0.4); Lymphocytes Absolute Auto 2.3 X10*3/uL (1.2-4.9); Lymphocytes Percent Auto 30.6 % (20-40); Mean Corpuscular HGB Conc 34.9 g/dl (31.0-36.0); Mean Corpuscular Hemoglobin 30.7 pg (27.0-33.0); Mean Corpuscular Volume 87.9 fL (80.0-98.0); Mean Platelet Volume 9.1 fL (9.4-12.4); Monocytes Absolute Auto 0.4 X10*3/uL (0.1-1.2); Monocytes Percent Auto 5.6 % (2-11); Neutrophils Absolute Auto 4.4 x10*3/uL (2.0-8.3); Neutrophils Percent Auto 58.9 % (45-73); Platelet Count 193 X10*3/uL (160-400); Red Blood Count 4.23 X10*6/uL (4.60-5.80); Red Cell Distribution Width 12.2 % (11.0-16.0); White Blood Count 7.5 X10*3/uL (4.8-10.8)
== END 2024-04-01 08:46 | disposition home or self-care (01) ==
LOC: HO.LAB 08:45
PROVIDERS: PCP Internal Medicine; Visit Provider Clinical Nurse Specialist Psychiatric/Mental Health, Adult
DX: Z79.899 Other long term (current) drug therapy (principal)
CPT/HCPCS: 36415; 85025

== ENCOUNTER 2024-05-01 09:05 | Outpatient (REF) | payer OTHER, SELFPAY ==
[2024-05-01 09:31] LABS: MANUAL DIFF FLAG NO
[2024-05-01 10:03] LABS: Basophils Percent Auto 0.4 % (0-2); Eosinophils Absolute Auto 0.3 X10*3/uL (0.0-0.4); Eosinophils Percent Auto 3.6 % (0-4); Hematocrit 38.2 % (42.0-52.0); Hemoglobin 12.9 g/dl (14.0-18.0); Imm Gran Abs Auto 0.02 X10*3/uL (0.00-0.03); Imm Gran Pct Auto 0.2 % (0.0-0.4); Lymphocytes Absolute Auto 2.3 X10*3/uL (1.2-4.9); Lymphocytes Percent Auto 28.6 % (20-40); Mean Corpuscular HGB Conc 33.8 g/dl (31.0-36.0); Mean Corpuscular Hemoglobin 30.4 pg (27.0-33.0); Mean Corpuscular Volume 89.9 fL (80.0-98.0); Mean Platelet Volume 9.4 fL (9.4-12.4); Monocytes Absolute Auto 0.5 X10*3/uL (0.1-1.2); Monocytes Percent Auto 5.8 % (2-11); Neutrophils Absolute Auto 4.9 x10*3/uL (2.0-8.3); Neutrophils Percent Auto 61.4 % (45-73); Platelet Count 198 X10*3/uL (160-400); Red Blood Count 4.25 X10*6/uL (4.60-5.80); Red Cell Distribution Width 12.2 % (11.0-16.0)
== END 2024-05-01 09:06 | disposition home or self-care (01) ==
LOC: HO.LAB 09:05
PROVIDERS: PCP Internal Medicine; Visit Provider Psychiatry & Neurology Psychiatry
DX: Z79.899 Other long term (current) drug therapy (principal)
CPT/HCPCS: 36415; 85025

== ENCOUNTER 2024-05-27 09:11 | Outpatient (REF) | payer OTHER, SELFPAY ==
[2024-05-27 09:19] LABS: MANUAL DIFF FLAG NO
[2024-05-27 10:41] LABS: Basophils Percent Auto 0.5 % (0-2); Eosinophils Absolute Auto 0.3 X10*3/uL (0.0-0.4); Eosinophils Percent Auto 3.5 % (0-4); Hematocrit 37.5 % (42.0-52.0); Hemoglobin 12.5 g/dl (14.0-18.0); Imm Gran Abs Auto 0.04 X10*3/uL (0.00-0.03); Imm Gran Pct Auto 0.5 % (0.0-0.4); Lymphocytes Absolute Auto 2.1 X10*3/uL (1.2-4.9); Lymphocytes Percent Auto 24.4 % (20-40); Mean Corpuscular HGB Conc 33.3 g/dl (31.0-36.0); Mean Corpuscular Volume 90.1 fL (80.0-98.0); Mean Platelet Volume 9.5 fL (9.4-12.4); Monocytes Absolute Auto 0.5 X10*3/uL (0.1-1.2); Monocytes Percent Auto 5.6 % (2-11); Neutrophils Absolute Auto 5.7 x10*3/uL (2.0-8.3); Neutrophils Percent Auto 65.5 % (45-73); Platelet Count 216 X10*3/uL (160-400); Red Blood Count 4.16 X10*6/uL (4.60-5.80); Red Cell Distribution Width 12.3 % (11.0-16.0); White Blood Count 8.7 X10*3/uL (4.8-10.8)
== END 2024-05-27 09:12 | disposition home or self-care (01) ==
LOC: HO.LABR 09:11
PROVIDERS: Clinical Nurse Specialist Psychiatric/Mental Health, Adult; PCP Internal Medicine; Visit Provider Psychiatry & Neurology Psychiatry
DX: Z79.899 Other long term (current) drug therapy (principal)
CPT/HCPCS: 36415; 85025

== ENCOUNTER → 2024-06-03 09:56 | Outpatient (REF) | payer OTHER, SELFPAY ==
--- NOTE | 2024-06-03 10:02 | CA_ITS ---
Transthoracic Echocardiogram Patient (Last, First, Middle): Jose Hernandez, Gender: Male Date of : 1985 Age: 39 Procedure Date: 06/03/2024 Procedure Type: Transthoracic Echocardiogram Location: OP Height: 180.34 cm Weight: 79.83 kg BSA: 2.00 m2 Heart Rate: bpm BP: 122 / 80 mmHg Brake Shoe Rebuilder: RICK Referring MD: Francois Shaw MD Symptoms: I42.9 - Cardiomyopathy, unspecified Study Quality: Fair ECG Rhythm: Sinus Conclusions: - The left ventricular systolic function is mildly decreased. The calculated ejection fraction is 51% by biplane method. - No obvious valvular pathology seen on this study. Findings Left Ventricle Normal left ventricular cavity size. There is normal left ventricular wall thickness. The left ventricular systolic function is mildly decreased. The calculated ejection fraction is 51% by biplane method. There is mild global hypokinesis. Diastolic function is normal for age. Right Ventricle Normal right ventricular cavity size and systolic function. Atria Both atria are normal in size. Aortic Valve There is a normal trileaflet aortic valve. There is no aortic valve stenosis. There is no aortic valve regurgitation. Mitral Valve The mitral valve appears normal. There is no mitral valve regurgitation. There is no mitral valve stenosis. Pulmonic Valve The pulmonic valve is likely normal. Tricuspid Valve There is trace tricuspid valve regurgitation. Tricuspid regurgitation envelope is inadequate for calculation of right ventricular systolic pressure. Great Vessels The asc aorta and aortic arch are normal in size. Venous The inferior vena cava is normal in size and collapses greater than 50% with inspiration. Pericardium/Pleural There is no evidence of pericardial effusion. Prior Study Comparison No significant change compared to prior study dated: 02/19/2022. Recommendations, Care & Conclusions No obvious valvular pathology seen on this study. Measurements 2D Linear Measurements IVSd: 0.83 0.6-0.9/0.6-1.0 cm LVIDd: 4.24 3.9-5.3/4.2-5.9 cm LVIDd Index: 2.12 2.4-3.2/2.2-3.1 cm/m2 LVIDs: 2.88 2.0-3.6 cm LVPWd: 0.90 0.7-1.1 cm Ao Root: 2.80 2.1-3.5 cm LA Diam: 2.90 2.7-3.8/3.0-4.0 cm LAIDs Index: 1.45 1.5-2.3 cm/m2 LV Mass: 142.35 67-162/88-224 g LV Mass Index: 71.17 43-95/49-115 g/m2 LVOT Diam: 2.20 3.0+(-)1.3 cm 2D Systolic Function EF 4C: 50.00 >55% EF 2C: 46.20 >55% EF BiP: 50.70 >55% Mitral Valve MV Pk E: 0.54 MV PK A: 0.68 MV Decel Time: 150.00 E/A: 0.80 E'Lateral: 8.05 E'Medial: 5.33 E/E' Med: 10.10 E/E' Lat: 6.70 PHT: 44.00 MVA PHT: 5.00 Decel [place]: 3.59 Aortic Valve AoV Pk Huan: 1.16 AoV Mn Huan: 0.84 AoV VTI: 0.24 AoV Pk Grad: 5.00 Aov Mn Grad: 3.00 NATAN Cont.VTI: 2.52 LVOT LVOT Pk Huan: 0.88 LVOT Mn Huan: 0.61 LVOT VTI: 0.16 LVOT Pk Grad: 3.00 LVOT Mn Grad: 2.00 LVOT Diam: 2.20 LVOT Area: 3.80 Diastolic Function MV Pk E: 0.54 MV Pk A: 0.68 E/A: 0.80 E'Medial: 5.33 E/E' Med: 10.10 E' Laterial: 8.05 E/E' Lat: 6.70 Right Ventricle TAPSE (mm): 22.60 TVS' Huan: 11.50 Tricuspid Valve RA Press: 3.00 Great Vessels Aorta Ao Root-2D: 2.80 2.0-3.7 cm Ao Asc: 3.20 2.1-3.4 cm Ao Arch: 2.50 Updated in Other Vendor System with Status of Final Francois Shaw MD electronically signed on 06/05/2024 8:48:53 AM with status of Final
== END ==
LOC: HO.CARD 09:56
PROVIDERS: PCP Internal Medicine; Visit Provider Internal Medicine
DX: I42.9 Cardiomyopathy, unspecified (principal)
CPT/HCPCS: 93306

== ENCOUNTER → 2024-06-03 10:02 | Outpatient (BNV) | payer OTHER, SELFPAY | PROVIDERS: PCP Internal Medicine; Visit Provider Internal Medicine | DX: I51.89 Other ill-defined heart diseases (principal) | CPT/HCPCS: 93306 ==

== ENCOUNTER 2024-06-19 13:04 | Outpatient (AMB) | payer OTHER, SELFPAY ==
[2024-06-19 13:06] VITALS: BP 124/60; PULSE 85; BMI 24.5
--- NOTE | 2024-06-19 13:06 | MHC.OFFVIS ---
Vital Signs 06/19/24 13:06 Height 5 ft 11 in Weight 175 lb 14.862 oz BMI 24.5 BP 124/60 Blood Pressure Location Lt brachial Position Sitting Pulse 85 Pulse Source Monitor Intake Visit Reasons: 1 yr f/u after echo Doctor Podiatric Medicine Required: No Accompanied by: Self / Same As Patient Allergies No Known Allergies [No Known Allergies*] Allergy (Verified 03/12/24 13:13) Medication List - Last Reconciled 06/19/24 by Romi Otto, [employer]-C bupropion HCl XL 150 mg PO QAM cholecalciferol (vitamin D3) (Vitamin D3) 50 mcg PO DAILY clozapine 300 mg PO BEDTIME ferrous sulfate 325 mg PO DAILY ibuprofen mg PO lorazepam 1 mg PO BID metoprolol tartrate 12.5 mg (1/2 x 25 mg) PO BID rosuvastatin 5 mg PO DAILY sennosides-docusate sodium 8.6-50 mg (Stool Softener-Laxative) 1 tab PO BEDTIME HPI HPI 1 yr f/u after echo: Details: Mitch is a 39-year-old male past medical history of hyperlipidemia, impaired fasting glucose, frequent sinus tachycardia, mild cardiomyopathy who presents for follow-up after recent echocardiogram. Holter monitor had been ordered however not completed yet. Today he reports [facility] Medical History Anemia Impaired fasting glucose Mixed dyslipidemia Constipation Depression Schizophrenia Surgical History No pertinent past surgical history Family History Father No problems noted. Mother Breast cancer Brain cancer Hodgkins disease Maternal Grandmother No problems noted. Maternal Grandfather No problems noted. Paternal Grandmother Lung cancer Smoker Paternal Grandfather No problems noted. Brother No problems noted. Sister No problems noted. Sister No problems noted. Social History Housing: House Alcohol intake: never Patient Tobacco Use Status: Never used Tobacco e-Cigarette/Vaping Use: Never Used service: No Current occupational status: unemployed Cognitive needs: No Hearing needs: No Vision needs: No Review of Systems Const Details: anxious at Drs visits All systems reviewed & are unremarkable except as noted in HPI and below Denies chills, Denies fatigue, Denies fever(s), Denies frequent falls, Denies weakness, Denies weight gain and Denies weight loss ENT Denies dizziness Card Denies chest pain, Denies leg edema, Denies lightheadedness, Denies palpitations, Denies dyspnea and Denies dyspnea on exertion Resp Denies cough, Denies dyspnea and Denies dyspnea on exertion GI Denies hematochezia Musc Denies abnormal gait, Denies muscle weakness, Denies numbness, Denies radiating pain into limb and Denies tingling Neuro Denies abnormal gait, Denies dizziness, Denies frequent falls, Denies numbness, Denies tingling and Denies weakness Endo Denies fatigue and Denies palpitations Physical Exam Vital Signs: BMI result Body Mass Index 24.5 Const General: cooperative, healthy appearing, comfortable and no acute distress Orientation/consciousness: patient oriented x3 Eyes Sclerae: sclerae normal Neck Neck: Yes normal visual inspection Resp Effort & Inspection: normal respiratory effort Auscultation: clear to auscultation bilaterally, no crackles, no rales, no rhonchi and no wheezes Cardio Jugular venous distension: no JVD Rate: regular rate Rhythm: regular rhythm Heart sounds: S1 normal heart sound present, S2 normal heart sound present, no murmurs and no rubs Neuro General: patient oriented x3 Extrem General: Yes normal to inspection, No no pedal edema and No calf tenderness Psych Appearance: grossly normal Mental Status: mental status grossly normal Speech and movement: Normal speech and movement present Office Procedures EKG Details: Today, read by me, sinus rhythm, no acute ST or T-wave abnormalities, rate 85, QTC 461 milliseconds [id number], Complete Assessment & Plan Assessment & Plan (1) Sinus tachycardia: Code(s): R00.0 - Tachycardia, unspecified Category: Medical Plan: Initial cardiac evaluation for elevated heart rate, sinus tachycardia. EF has been running low normal. Holter monitor done 02/19/2022 showed sinus rhythm with average heart rate 88, 30% of the time greater than 100, rare PVCs. He was put on low-dose metoprolol. A repeat echo done 06/03/2024 showing EF 51%, no valve abnormalities. Holter monitor was ordered however not completed for unclear reason. Will have him call centralized scheduling to arrange. EKG done today shows normal sinus rhythm, rate 85. Denies any recent heart palpitations. Offered to change his metoprolol to XL and he prefers to stay on the metoprolol tartrate 12.5 mg b.i.d.. Plan to call him with Holter results. Discussed limiting caffeinated beverages to only 1 per day. Tells me he does drink coffee and Coca-Cola. Cardiology follow-up 1 year, sooner if needed (2) Cardiomyopathy: Code(s): I42.9 - Cardiomyopathy, unspecified Category: Medical Qualifiers: Cardiomyopathy type: unspecified Qualified Code(s): I42.9 - Cardiomyopathy, unspecified Plan: Mild cardiomyopathy as above. No change in the last few years. No anginal symptoms. Most likely nonischemic and previously thought to be related to sinus tachycardia. He is on metoprolol. Rechecking Holter. Plan Time spent on chart review, documentation, interview and assessment Coding Level of Care Code Est Pt Level 3 (56079) Diagnoses Sinus tachycardia R00.0 Cardiomyopathy, unspecified type I42.9 Cardiomyopathy type: unspecified CPT Codes EKG - CPT: 46997-[id number], Complete ([id number]) Time Spent (min) 24
== END 2024-06-19 13:22 | disposition home or self-care (01) ==
PROVIDERS: PCP Internal Medicine; Visit Provider Nurse Practitioner Family
DX: R00.0 Tachycardia, unspecified (principal); I42.9 Cardiomyopathy, unspecified
CPT/HCPCS: 93010; 99213

== ENCOUNTER → 2024-06-19 13:04 | Outpatient (BNVA) | payer OTHER, SELFPAY | PROVIDERS: PCP Internal Medicine; Visit Provider Nurse Practitioner Family | DX: I42.9 Cardiomyopathy, unspecified (principal); R00.0 Tachycardia, unspecified | CPT/HCPCS: 93005; 99212 ==

== ENCOUNTER 2024-07-01 09:13 | Outpatient (REF) | payer OTHER, SELFPAY ==
[2024-07-01 09:36] LABS: MANUAL DIFF FLAG NO
[2024-07-01 09:53] LABS: Basophils Percent Auto 0.4 % (0-2); Eosinophils Absolute Auto 0.3 X10*3/uL (0.0-0.4); Eosinophils Percent Auto 3.4 % (0-4); Hematocrit 38.5 % (42.0-52.0); Hemoglobin 13.3 g/dl (14.0-18.0); Imm Gran Abs Auto 0.04 X10*3/uL (0.00-0.03); Imm Gran Pct Auto 0.4 % (0.0-0.4); Lymphocytes Absolute Auto 2.4 X10*3/uL (1.2-4.9); Lymphocytes Percent Auto 24.5 % (20-40); Mean Corpuscular HGB Conc 34.5 g/dl (31.0-36.0); Mean Corpuscular Hemoglobin 30.4 pg (27.0-33.0); Mean Corpuscular Volume 87.9 fL (80.0-98.0); Mean Platelet Volume 9.1 fL (9.4-12.4); Monocytes Absolute Auto 0.6 X10*3/uL (0.1-1.2); Monocytes Percent Auto 5.8 % (2-11); Neutrophils Absolute Auto 6.4 x10*3/uL (2.0-8.3); Neutrophils Percent Auto 65.5 % (45-73); Platelet Count 205 X10*3/uL (160-400); Red Blood Count 4.38 X10*6/uL (4.60-5.80); Red Cell Distribution Width 12.2 % (11.0-16.0); White Blood Count 9.8 X10*3/uL (4.8-10.8)
== END 2024-07-01 09:14 | disposition home or self-care (01) ==
LOC: HO.LAB 09:13
DX: Z79.899 Other long term (current) drug therapy (principal)
CPT/HCPCS: 36415; 85025

== ENCOUNTER 2024-07-31 09:08 | Outpatient (REF) | payer OTHER, SELFPAY ==
[2024-07-31 09:30] LABS: MANUAL DIFF FLAG NO
[2024-07-31 10:38] LABS: Basophils Percent Auto 0.5 % (0-2); Eosinophils Absolute Auto 0.3 X10*3/uL (0.0-0.4); Eosinophils Percent Auto 3.4 % (0-4); Hematocrit 37.4 % (42.0-52.0); Hemoglobin 12.7 g/dl (14.0-18.0); Imm Gran Abs Auto 0.05 X10*3/uL (0.00-0.03); Imm Gran Pct Auto 0.6 % (0.0-0.4); Lymphocytes Absolute Auto 2.4 X10*3/uL (1.2-4.9); Lymphocytes Percent Auto 27.8 % (20-40); Mean Corpuscular Hemoglobin 30.2 pg (27.0-33.0); Mean Platelet Volume 9.6 fL (9.4-12.4); Monocytes Absolute Auto 0.6 X10*3/uL (0.1-1.2); Monocytes Percent Auto 7.3 % (2-11); Neutrophils Absolute Auto 5.3 x10*3/uL (2.0-8.3); Neutrophils Percent Auto 60.4 % (45-73); Platelet Count 217 X10*3/uL (160-400); Red Cell Distribution Width 12.4 % (11.0-16.0); White Blood Count 8.7 X10*3/uL (4.8-10.8)
== END 2024-07-31 09:09 | disposition home or self-care (01) ==
LOC: HO.LAB 09:08
PROVIDERS: PCP Internal Medicine
DX: Z79.899 Other long term (current) drug therapy (principal)
CPT/HCPCS: 36415; 85025

== ENCOUNTER → 2024-08-05 12:57 | Outpatient (REF) | payer OTHER, SELFPAY ==
--- NOTE | 2024-08-05 13:00 | HM_ITS ---
* Total monitoring time 3 days. * Underlying rhythm is sinus with an average rate of 82/Min. * Ventricular ectopy with a burden of 0.5%. * Minimal burden supraventricular ectopy. * No significant pauses or high-grade AV blocks. * No patient markers or diary events. MTDD
== END ==
LOC: HO.CARD 12:57
PROVIDERS: PCP Internal Medicine; Visit Provider Internal Medicine
DX: R00.0 Tachycardia, unspecified (principal)
CPT/HCPCS: 93242

== ENCOUNTER → 2024-08-05 13:00 | Outpatient (BNV) | payer OTHER, SELFPAY | PROVIDERS: PCP Internal Medicine; Visit Provider Internal Medicine | DX: I49.3 Ventricular premature depolarization (principal) | CPT/HCPCS: 93244 ==

== ENCOUNTER 2024-09-29 12:35 | Outpatient (REF) | payer OTHER, SELFPAY ==
[2024-09-29 12:42] LABS: MANUAL DIFF FLAG NO
[2024-09-29 13:03] LABS: Basophils Percent Auto 0.5 % (0-2); Eosinophils Absolute Auto 0.3 X10*3/uL (0.0-0.4); Eosinophils Percent Auto 3.3 % (0-4); Hematocrit 38.7 % (42.0-52.0); Hemoglobin 13.2 g/dl (14.0-18.0); Imm Gran Abs Auto 0.02 X10*3/uL (0.00-0.03); Imm Gran Pct Auto 0.2 % (0.0-0.4); Lymphocytes Absolute Auto 2.1 X10*3/uL (1.2-4.9); Lymphocytes Percent Auto 25.9 % (20-40); Mean Corpuscular HGB Conc 34.1 g/dl (31.0-36.0); Mean Corpuscular Hemoglobin 30.6 pg (27.0-33.0); Mean Corpuscular Volume 89.6 fL (80.0-98.0); Mean Platelet Volume 9.1 fL (9.4-12.4); Monocytes Absolute Auto 0.7 X10*3/uL (0.1-1.2); Neutrophils Percent Auto 61.1 % (45-73); Platelet Count 204 X10*3/uL (160-400); Red Blood Count 4.32 X10*6/uL (4.60-5.80); Red Cell Distribution Width 12.2 % (11.0-16.0); White Blood Count 8.2 X10*3/uL (4.8-10.8)
== END 2024-09-29 12:36 | disposition home or self-care (01) ==
LOC: HO.LAB 12:35
PROVIDERS: PCP Internal Medicine
DX: Z79.899 Other long term (current) drug therapy (principal)
CPT/HCPCS: 36415; 85025

== ENCOUNTER 2024-10-14 09:11 | Outpatient (REF) | payer OTHER, SELFPAY ==
[2024-10-14 09:33] LABS: MANUAL DIFF FLAG NO
[2024-10-14 10:02] LABS: Basophils Percent Auto 0.4 % (0-2); Eosinophils Absolute Auto 0.3 X10*3/uL (0.0-0.4); Eosinophils Percent Auto 3.3 % (0-4); Hematocrit 38.6 % (42.0-52.0); Hemoglobin 13.5 g/dl (14.0-18.0); Imm Gran Abs Auto 0.04 X10*3/uL (0.00-0.03); Imm Gran Pct Auto 0.4 % (0.0-0.4); Lymphocytes Absolute Auto 2.3 X10*3/uL (1.2-4.9); Lymphocytes Percent Auto 25.7 % (20-40); Mean Corpuscular Hemoglobin 30.5 pg (27.0-33.0); Mean Corpuscular Volume 87.1 fL (80.0-98.0); Mean Platelet Volume 9.1 fL (9.4-12.4); Monocytes Absolute Auto 0.6 X10*3/uL (0.1-1.2); Monocytes Percent Auto 6.3 % (2-11); Neutrophils Absolute Auto 5.8 x10*3/uL (2.0-8.3); Neutrophils Percent Auto 63.9 % (45-73); Platelet Count 215 X10*3/uL (160-400); Red Blood Count 4.43 X10*6/uL (4.60-5.80); Red Cell Distribution Width 12.2 % (11.0-16.0); White Blood Count 9.1 X10*3/uL (4.8-10.8)
== END 2024-10-14 09:12 | disposition home or self-care (01) ==
LOC: HO.LABR 09:11
PROVIDERS: PCP Internal Medicine
DX: Z79.899 Other long term (current) drug therapy (principal)
CPT/HCPCS: 36415; 85025

== ENCOUNTER 2024-11-18 09:31 | Outpatient (REF) | payer OTHER, SELFPAY ==
[2024-11-18 09:46] LABS: MANUAL DIFF FLAG NO
[2024-11-18 10:24] LABS: Basophils Percent Auto 0.5 % (0-2); Eosinophils Absolute Auto 0.3 X10*3/uL (0.0-0.4); Eosinophils Percent Auto 3.6 % (0-4); Hematocrit 39.4 % (42.0-52.0); Hemoglobin 13.5 g/dl (14.0-18.0); Imm Gran Abs Auto 0.04 X10*3/uL (0.00-0.03); Imm Gran Pct Auto 0.5 % (0.0-0.4); Lymphocytes Absolute Auto 2.3 X10*3/uL (1.2-4.9); Mean Corpuscular HGB Conc 34.3 g/dl (31.0-36.0); Mean Corpuscular Hemoglobin 30.5 pg (27.0-33.0); Mean Corpuscular Volume 89.1 fL (80.0-98.0); Mean Platelet Volume 9.2 fL (9.4-12.4); Monocytes Absolute Auto 0.5 X10*3/uL (0.1-1.2); Monocytes Percent Auto 5.8 % (2-11); Neutrophils Absolute Auto 5.4 x10*3/uL (2.0-8.3); Neutrophils Percent Auto 62.6 % (45-73); Platelet Count 221 X10*3/uL (160-400); Red Blood Count 4.42 X10*6/uL (4.60-5.80); Red Cell Distribution Width 12.2 % (11.0-16.0); White Blood Count 8.6 X10*3/uL (4.8-10.8)
== END 2024-11-18 09:32 | disposition home or self-care (01) ==
LOC: HO.LABR 09:31
PROVIDERS: PCP Internal Medicine
DX: Z79.899 Other long term (current) drug therapy (principal)
CPT/HCPCS: 36415; 85025

== ENCOUNTER 2024-12-09 09:27 | Outpatient (REF) | payer OTHER, SELFPAY ==
[2024-12-09 09:37] LABS: MANUAL DIFF FLAG NO
[2024-12-09 10:24] LABS: Basophils Percent Auto 0.4 % (0-2); Eosinophils Absolute Auto 0.3 X10*3/uL (0.0-0.4); Eosinophils Percent Auto 3.1 % (0-4); Hematocrit 38.3 % (42.0-52.0); Hemoglobin 13.1 g/dl (14.0-18.0); Imm Gran Abs Auto 0.06 X10*3/uL (0.00-0.03); Imm Gran Pct Auto 0.7 % (0.0-0.4); Lymphocytes Absolute Auto 2.2 X10*3/uL (1.2-4.9); Lymphocytes Percent Auto 25.8 % (20-40); Mean Corpuscular HGB Conc 34.2 g/dl (31.0-36.0); Mean Corpuscular Hemoglobin 30.3 pg (27.0-33.0); Mean Corpuscular Volume 88.7 fL (80.0-98.0); Mean Platelet Volume 9.2 fL (9.4-12.4); Monocytes Absolute Auto 0.5 X10*3/uL (0.1-1.2); Monocytes Percent Auto 6.4 % (2-11); Neutrophils Absolute Auto 5.3 x10*3/uL (2.0-8.3); Neutrophils Percent Auto 63.6 % (45-73); Platelet Count 199 X10*3/uL (160-400); Red Blood Count 4.32 X10*6/uL (4.60-5.80); Red Cell Distribution Width 12.3 % (11.0-16.0); White Blood Count 8.3 X10*3/uL (4.8-10.8)
== END 2024-12-09 09:28 | disposition home or self-care (01) ==
LOC: HO.LABR 09:27
PROVIDERS: PCP Internal Medicine
DX: Z79.899 Other long term (current) drug therapy (principal)
CPT/HCPCS: 36415; 85025

== ENCOUNTER 2025-01-06 09:12 | Outpatient (REF) | payer OTHER, SELFPAY ==
[2025-01-06 09:19] LABS: MANUAL DIFF FLAG NO
[2025-01-06 09:49] LABS: Basophils Percent Auto 0.3 % (0-2); Eosinophils Absolute Auto 0.3 X10*3/uL (0.0-0.4); Eosinophils Percent Auto 3.1 % (0-4); Hemoglobin 13.2 g/dl (14.0-18.0); Imm Gran Abs Auto 0.04 X10*3/uL (0.00-0.03); Imm Gran Pct Auto 0.5 % (0.0-0.4); Lymphocytes Absolute Auto 2.4 X10*3/uL (1.2-4.9); Lymphocytes Percent Auto 27.3 % (20-40); Mean Corpuscular HGB Conc 34.7 g/dl (31.0-36.0); Mean Corpuscular Hemoglobin 30.6 pg (27.0-33.0); Mean Platelet Volume 9.3 fL (9.4-12.4); Monocytes Absolute Auto 0.6 X10*3/uL (0.1-1.2); Monocytes Percent Auto 7.4 % (2-11); Neutrophils Absolute Auto 5.3 x10*3/uL (2.0-8.3); Neutrophils Percent Auto 61.4 % (45-73); Platelet Count 206 X10*3/uL (160-400); Red Blood Count 4.32 X10*6/uL (4.60-5.80); Red Cell Distribution Width 12.2 % (11.0-16.0); White Blood Count 8.6 X10*3/uL (4.8-10.8)
== END 2025-01-06 09:13 | disposition home or self-care (01) ==
LOC: HO.LABR 09:12
PROVIDERS: PCP Internal Medicine
DX: Z79.899 Other long term (current) drug therapy (principal)
CPT/HCPCS: 36415; 85025

== ENCOUNTER 2025-02-03 11:52 | Outpatient (REF) | payer OTHER, SELFPAY ==
[2025-02-03 12:03] LABS: MANUAL DIFF FLAG NO
[2025-02-03 12:15] LABS: Basophils Absolute Auto 0.1 X10*3/uL (0.0-0.2); Basophils Percent Auto 0.5 % (0-2); Eosinophils Absolute Auto 0.3 X10*3/uL (0.0-0.4); Hematocrit 39.6 % (42.0-52.0); Hemoglobin 13.3 g/dl (14.0-18.0); Imm Gran Abs Auto 0.04 X10*3/uL (0.00-0.03); Imm Gran Pct Auto 0.4 % (0.0-0.4); Lymphocytes Absolute Auto 2.6 X10*3/uL (1.2-4.9); Lymphocytes Percent Auto 28.2 % (20-40); Mean Corpuscular HGB Conc 33.6 g/dl (31.0-36.0); Mean Corpuscular Hemoglobin 30.2 pg (27.0-33.0); Mean Corpuscular Volume 89.8 fL (80.0-98.0); Mean Platelet Volume 9.1 fL (9.4-12.4); Monocytes Absolute Auto 0.5 X10*3/uL (0.1-1.2); Monocytes Percent Auto 5.4 % (2-11); Neutrophils Absolute Auto 5.8 x10*3/uL (2.0-8.3); Neutrophils Percent Auto 62.5 % (45-73); Platelet Count 217 X10*3/uL (160-400); Red Blood Count 4.41 X10*6/uL (4.60-5.80); Red Cell Distribution Width 12.3 % (11.0-16.0); White Blood Count 9.3 X10*3/uL (4.8-10.8)
== END 2025-02-03 11:53 | disposition home or self-care (01) ==
LOC: HO.LABR 11:52
PROVIDERS: PCP Internal Medicine
DX: Z79.899 Other long term (current) drug therapy (principal)
CPT/HCPCS: 36415; 85025

== ENCOUNTER 2025-02-24 10:12 | Outpatient (REF) | payer OTHER, SELFPAY ==
[2025-02-24 10:29] LABS: MANUAL DIFF FLAG NO
[2025-02-24 10:48] LABS: Basophils Percent Auto 0.5 % (0-2); Eosinophils Absolute Auto 0.3 X10*3/uL (0.0-0.4); Eosinophils Percent Auto 4.2 % (0-4); Hematocrit 38.3 % (42.0-52.0); Hemoglobin 12.9 g/dl (14.0-18.0); Imm Gran Abs Auto 0.03 X10*3/uL (0.00-0.03); Imm Gran Pct Auto 0.4 % (0.0-0.4); Lymphocytes Absolute Auto 2.4 X10*3/uL (1.2-4.9); Lymphocytes Percent Auto 29.4 % (20-40); Mean Corpuscular HGB Conc 33.7 g/dl (31.0-36.0); Mean Corpuscular Hemoglobin 30.1 pg (27.0-33.0); Mean Corpuscular Volume 89.3 fL (80.0-98.0); Monocytes Absolute Auto 0.5 X10*3/uL (0.1-1.2); Monocytes Percent Auto 6.2 % (2-11); Neutrophils Absolute Auto 4.8 x10*3/uL (2.0-8.3); Neutrophils Percent Auto 59.3 % (45-73); Platelet Count 209 X10*3/uL (160-400); Red Blood Count 4.29 X10*6/uL (4.60-5.80); Red Cell Distribution Width 12.3 % (11.0-16.0); White Blood Count 8.1 X10*3/uL (4.8-10.8)
[2025-02-24 11:33] LABS: Alanine Aminotransferase 50 U/L (0-40); Anion Gap 9 (12-20); Aspartate Amino Transferase 29 U/L (5-37); Blood Urea Nitrogen 17 mg/dL (9-16); Calcium 9.4 mg/dL (8.4-10.2); Carbon Dioxide 30 mmol/L (22-29); Chloride 106 mmol/L (96-108); Cholesterol 187 mg/dL (<200); Estimated Glomerular Filt Rate > 60; Glucose Fasting 108 mg/dL (60-99); HDL Cholesterol 41 mg/dL (>40); Iron 113 mcg/dL (45-160); LDL Cholesterol Calculated 98 mg/dL (<100); Percent Iron Saturation 47 % (15-50); Potassium 3.7 mmol/L (3.3-5.1); Sodium 141 mmol/L (135-145); Total Iron Binding Capacity 241 mcg/dL (228-428); Triglycerides 242 mg/dL (<150); Unsaturated Iron Binding 128 ug/dL
== END 2025-02-24 10:13 | disposition home or self-care (01) ==
LOC: HO.LABR 10:12
PROVIDERS: PCP Internal Medicine
DX: Z79.899 Other long term (current) drug therapy (principal); D64.9 Anemia, unspecified; E78.2 Mixed hyperlipidemia; Z13.1 Encounter for screening for diabetes mellitus
CPT/HCPCS: 36415; 80048; 80061; 83540; 84450; 84460; 85025

== ENCOUNTER 2025-03-24 09:10 | Outpatient (REF) | payer OTHER, SELFPAY ==
[2025-03-24 09:21] LABS: MANUAL DIFF FLAG NO
[2025-03-24 09:50] LABS: Basophils Percent Auto 0.3 % (0-2); Eosinophils Absolute Auto 0.3 X10*3/uL (0.0-0.4); Eosinophils Percent Auto 3.3 % (0-4); Hematocrit 37.7 % (42.0-52.0); Imm Gran Abs Auto 0.06 X10*3/uL (0.00-0.03); Imm Gran Pct Auto 0.6 % (0.0-0.4); Lymphocytes Absolute Auto 2.3 X10*3/uL (1.2-4.9); Lymphocytes Percent Auto 24.8 % (20-40); Mean Corpuscular HGB Conc 34.5 g/dl (31.0-36.0); Mean Corpuscular Hemoglobin 30.4 pg (27.0-33.0); Mean Corpuscular Volume 88.3 fL (80.0-98.0); Mean Platelet Volume 9.1 fL (9.4-12.4); Monocytes Absolute Auto 0.6 X10*3/uL (0.1-1.2); Monocytes Percent Auto 6.8 % (2-11); Neutrophils Percent Auto 64.2 % (45-73); Platelet Count 204 X10*3/uL (160-400); Red Blood Count 4.27 X10*6/uL (4.60-5.80); Red Cell Distribution Width 12.4 % (11.0-16.0); White Blood Count 9.4 X10*3/uL (4.8-10.8)
== END 2025-03-24 09:11 | disposition home or self-care (01) ==
LOC: HO.LABR 09:10
PROVIDERS: PCP Internal Medicine
DX: Z79.899 Other long term (current) drug therapy (principal)
CPT/HCPCS: 36415; 85025

== ENCOUNTER 2025-04-15 12:04 | Outpatient (AMB) | payer OTHER, SELFPAY ==
[2025-04-15 12:09] VITALS: BP 100/78; PULSE 92; RESP 16; TEMP 36.8; O2SAT 100; BMI 26.1
--- NOTE | 2025-04-15 12:09 | A.OFFPC_ITS ---
Vital Signs 04/15/25 12:09 Height 5 ft 11 in Weight 187 lb BMI 26.1 BP 100/78 Blood Pressure Location Lt brachial Position Sitting Respiration 16 Pulse 92 Pulse Source Pulse Oximeter Temp 98.3 F Temp Source Oral Pulse Oximetry (%) 100 Oxygen Delivery Method Room Air Intake Visit Reasons: Annual PE Intake Note: Pt is here today for his PE Allergies No Known Allergies (No Known Allergies*) Allergy (Verified 04/15/25 12:42) Medication List - Last Reconciled 04/15/25 by Malini Melchor MD bupropion HCl XL 150 mg PO QAM cholecalciferol (vitamin D3) (Vitamin D3) 50 mcg PO DAILY clozapine 300 mg PO BEDTIME ferrous sulfate 325 mg PO DAILY ibuprofen mg PO lorazepam 1 mg PO BID metoprolol tartrate 12.5 mg (1/2 x 25 mg) PO BID rosuvastatin 5 mg PO DAILY sennosides-docusate sodium 8.6-50 mg (Stool Softener-Laxative) 1 tab PO BEDTIME Tobacco use date assessed: 04/15/25 Dental Screening Dental Screen Date: 04/15/25 Did you have a dental visit in the last 12 months?: Yes Did you have a dental problem in the last 6 months where you did not have access to dental care?: No Was dental information given to patient?: Patient has dentist HPI Annual PE HPI Details 40-year-old male with history of schizop hrenia, for followed by Psychiatry and controlled on medication, has history of anemia, currently taking ferrous sulfate 325 mg daily, has dyslipidemia on rosuvastatin and history of PVCs, here today for his physical exam. He states that he has been feeling well, with no complaints at present time. Noted to have 12 point weight gain since last visit. States has been attending a lot of part use and has been drinking soda eating cake ice-cream these past few months. Latest fasting labs showed elevated triglycerides and fasting glucose as well as 1 of the liver enzyme. [facility] Medical History Anemia Impaired fasting glucose Mixed dyslipidemia Constipation Depression Schizophrenia Surgical History No pertinent past surgical history Family History Father No problems noted. Mother Breast cancer Brain cancer Hodgkins disease Maternal Grandmother No problems noted. Maternal Grandfather No problems noted. Paternal Grandmother Lung cancer Smoker Paternal Grandfather No problems noted. Brother No problems noted. Sister No problems noted. Sister No problems noted. Social History Housing: House Alcohol intake: never Patient Tobacco Use Status: Never used Tobacco e-Cigarette/Vaping Use: Never Used service: No Current occupational status: unemployed Cognitive needs: No Hearing needs: No Vision needs: No Questionnaire PHQ-9 Over the last 2 weeks, how often have you been bothered by any of the following problems? 1. Little interest or pleasure in doing things: nearly every day 2. Feeling down, depressed, or hopeless: not at all 3. Trouble falling or staying asleep, or sleeping too much: not at all 4. Feeling tired or having little energy: not at all 5. Poor appetite or overeating: not at all 6. Feeling bad about yourself - or that you are a failure or have let yourself or your family down: not at all 7. Trouble concentrating on things, such as reading the newspaper or watching television: not at all 8. Moving or speaking so slowly that other people could have noticed. Or the opposite - being so fidgety or restless that you have been moving around a lot more than usual: not at all 9. Thoughts that you would be better off or of hurting yourself in some wa y: not at all Total score: 3 Depression Screening Interpretation: Negative (Currently being seen by Psychiatry, for schizophrenia) Depression Screening Done: Yes 17042 - PHQ-9 Billing: Yes Source: Developed by Drs. Yoan Stevenson, Christin Oreilly, Thompson Wilson and colleagues, with an educational sarah from [employer]. Thrive Questionnaire Date Thrive assessed: 04/15/25 I am a: Patient What is your living situation today?: I have a steady place to live Within the past 12 months, did the food you bought not last and you didn't have the money to get more?: Never true Within the past 12 months, did you worry whether your food would run out before you got money to buy more?: I choose not to answer this question Do you have trouble paying for medicines?: No Do you have trouble getting transportation to medical appointments?: No Do you have trouble paying your heating and electricity bill?: No Do you have trouble taking care of your child, family member or friend?: I choose not to answer this question Do you have trouble with day-to-day activities such as bathing, preparing meals, shopping, managing finances, etc.?: No Are you currently unemployed and looking for a job?: I choose not to answer this question Are you interested in more education?: I choose not to answer this question Please select the resources that you would like help with: None Currently or been in a relationship where the following occur: I choose not to answer THRIVE Score: 0 AUDIT C Alcohol Use Questionnaire (AUDIT-C) 1. How often do you have a drink containing alcohol?: Never Total Score: 0 Score Reviewed/Action Taken: Yes KIERAN-7 AMB Questionnaire KIERAN-7 Date KIERAN - 7 assessed: 04/15/25 Feeling nervous, anxious, or on edge: 0 = Not at all Not being able to stop or control worryin = Not at all Worrying too much about different things: 0 = Not at all Trouble relaxin = Not at all Being so restless that it is hard to sit still: 0 = Not at all Becoming easily annoyed or irritable: 0 = Not at all Feeling afraid as if something awful might happen: 0 = Not at all Total KIERAN-7 score (0-4 normal; 5-9 mild; 10-14 moderate; 15-21 severe): 0 Source: Developed by Drs. Yoan Stevenson, Christin Oreilly, Thompson Wilson and colleagues, with an educational sarah from [employer]. KIERAN-7 Assessment Billing KIERAN-7 Assessment Tool: KIERAN-7 Assessment 93799 Review of Systems Const Denies chills, Denies fatigue, Denies fever(s), Denies frequent falls and Denies weakness Eyes Denies change in vision ENT Denies dizziness Card Denies chest pain, Denies leg edema, Denies lightheadedness, Denies palpitations, Denies dyspnea and Denies dyspnea on exertion Resp Denies cough, Denies dyspnea and Denies dyspnea on exertion GI Denies hematochezia Reports no additional complaints Musc Denies abnormal gait, Denies muscle weakness, Denies numbness, Denies radiating pain into limb and Denies tingling Skin/Breast Denies lesions and Denies rash Neuro Denies abnormal gait, Denies dizziness, Denies frequent falls, Denies numbness, Denies tingling and Denies weakness Psych Reports no additional complaints Endo Denies fatigue and Denies palpitations John/Lymph Reports no additional complaints Aller/Immun Reports no additional complaints Physical exam (Primary Care) Vital Signs: Last Vital Signs Temp 98.3 F 04/15/25 12:09 Pulse 92 04/15/25 12:09 Resp 16 04/15/25 12:09 BP 100/78 04/15/25 12:09 Pulse Ox 100 04/15/25 12:09 Oxygen Delivery Method Room Air 04/15/25 12:09 BMI result Body Mass Index 26.1 Tobacco/Smoking Status: Tobacco use Status Tobacco use date assessed 04/15/25 04/15/25 12:10 Patient Tobacco Use Status Never used Tobacco 04/15/25 12:10 e-Cigarette/Vaping Use Never Used 04/15/25 12:10 PHQ-9: PHQ-9 Score PHQ-9: Total score 3 04/15/25 12:10 Depression Screening Interpretation: Negative (Currently being seen by Psychiatry, for schizophrenia) Thrive Assessment: Date of Thrive Assessment Date Thrive assessed 04/15/25 04/15/25 12:10 Currently or been in a relationship where the following occur: I choose not to answer Advance Care Planning discussion: Completed/Scanned Date of discussion: 04/15/25 Who was present: Patient Forms completed: Health Care Proxy Time spent: 16-45 minutes Actual minutes spent: 2 Const General: cooperative, comfortable and no acute distress Nutritional Appearance: average body habitus Orientation/consciousness: patient oriented x3 HENMT Mouth: moist mucous membranes Eyes General: appearance normal, both eyes and all related structures Neck Neck: Yes full ROM, Yes no lymphadenopathy and Yes supple Thyroid: Thyroid normal Chest Chest palpation & inspection: normal inspection of the chest and normal palpation of entire chest wall Resp Effort & Inspection: normal respiratory effort and able to speak in complete sentences Auscultation: clear to auscultation bilaterally Cardio Other: S1-S2 present, regular rate and rhythm GI Palpation (GI): Soft to palpation, nontender, no guarding and no masses General: Yes no CVA tenderness Male General Exam: Yes normal external exam Back/Spine/Pelvis Back: no CVA tenderness and No back tenderness Skin General skin exam: no rashes or lesions noted Neuro General: patient oriented x3, gait normal, tone normal, moves all extremities, Normal light touch and pain sensation and no focal motor deficits Extrem General: Yes full ROM, Yes no joint enlargement, Yes no clubbing, cyanosis or edema and Yes normal gait Psych Appearance: grossly normal and well kempt Mental Status: mental status grossly normal Speech and movement: Normal speech and movement present Affect: normal affect Coding Level of Care Code Est Pt Prev Care 40-64y(94572) Diagnoses Annual visit for general adult medical examination with abnormal findings Z00. Mixed dyslipidemia E78.2 Impaired fasting glucose R73.01 Schizophrenia, unspecified type F20.9 Schizophrenia type: unspecified Anemia, unspecified type D64.9 Anemia type: unspecified type Constipation K59.00 Advanced directives, counseling/discussion Z71.89 Additional Codes KIERAN-7 Assessment Billing - KIERAN-7 Assessment Tool: KIERAN-7 Assessment 16284 ([id number]) PHQ-9 - 46827 - PHQ-9 Billing: Yes ([id number]) Vital Signs *Quality* - Advance Care Planning discussion: Completed/Scanned ([id number]) Vital Signs *Quality* - Time spent: 16-45 minutes ([id number]) Assessment & Plan Assessment & Plan (1) Annual visit for general adult medical examination with abnormal findings: Code(s): Z00.01 - Encounter for general adult medical examination with abnormal findings Plan: Recent fasting lab results reviewed with patient.. Recommended dental visit every 6 months and regular eye exams, at least every 2 years. Reinforced importance of following low-cholesterol diet and healthy eating habits, stopped drinking soda continue with regular exercise at least 150 minutes of moderate intensity exercise in a week. Reminded to get his yearly flu shot, up-to-date with Tdap (2) Mixed dyslipidemia: Code(s): E78.2 - Mixed hyperlipidemia Category: Medical Plan: Reviewed recent fasting lipid profile with patient with higher triglycerides . Continue rosuvastatin 5 mg daily, in addition to adherence to low-cholesterol diet and regular exercise, at least 30 minutes 3 to 4 times a week. Advised patient to make healthy food choices, eat more fruits, vegetables, whole grains, wild caught fish and low-fat dairy. Limit amount of meat and fried or fatty food products, as well as processed foods and fast foods, avoid soda. Follow-up scheduled with repeat fasting lipid panel in 6 months. (3) Impaired fasting glucose: Code(s): R73.01 - Impaired fasting glucose Category: Medical Plan: Reinforced importance of following healthy eating habits, and getting regular exercise will repeat another hemoglobin A1c and fasting glucose level in September 2025 (4) Schizophrenia: Comment: merari Cade/ Javi Miner Code(s): F20.9 - Schizophrenia, unspecified Category: Medical Qualifiers: Schizophrenia type: unspecified Qualified Code(s): F20.9 - Schizophrenia, unspecified Plan: Currently followed by nurse practitioner Psychiatry, on bupropion HCL 150 mg in the morning and clozapine 300 mg at bedtime together with lorazepam as needed (5) Anemia: Code(s): D64.9 - Anemia, unspecified Category: Medical Qualifiers: Anemia type: unspecified type Qualified Code(s): D64.9 - Anemia, unspecified Plan: Continue ferrous sulfate (6) Constipation: Code(s): K59.00 - Constipation, unspecified Category: Medical Plan: Takes Senokot 1 tablet at bedtime (7) Advanced directives, counseling/discussion: Code(s): Z71.89 - Other specified counseling Plan: Initiated the conversation about Advanced Directives. Advanced Directives help patients prepare for current and future decisions about their medical treatment and place of care. Discussed with patient that it is a process where a patients current condition and prognosis are reviewed, their wishes for information regarding their illness are elicited, and likely medical dilemmas are presented and options discussed. Healthcare proxy form completed today. The form can be amended as needed, reviewed yearly and make changes as needed Orders: Orders Complete Blood Count Auto Diff 09/30/25 D64.9 - Anemia, unspecified, E78.2 - Mixed hyperlipidemia, R73.01 - Impaired fasting glucose Aspartate Amino Transferase 09/30/25 D64.9 - Anemia, unspecified, E78.2 - Mixed hyperlipidemia, R73.01 - Impaired fasting glucose Basic Metabolic Panel Fasting 09/30/25 D64.9 - Anemia, unspecified, E78.2 - Mixed hyperlipidemia, R73.01 - Impaired fasting glucose Hemoglobin A1c 09/30/25 D64.9 - Anemia, unspecified, E78.2 - Mixed hyperlipidemia, R73.01 - Impaired fasting glucose IRON PROFILE 09/30/25 D64.9 - Anemia, unspecified, E78.2 - Mixed hyperlipidemia, R73.01 - Impaired fasting glucose Alanine Aminotransferase 09/30/25 D64.9 - Anemia, unspecified, E78.2 - Mixed hyperlipidemia, R73.01 - Impaired fasting glucose Lipid Panel 09/30/25 D64.9 - Anemia, unspecified, E78.2 - Mixed hyperlipidemia, R73.01 - Impaired fasting glucose
== END 2025-04-15 12:58 | disposition home or self-care (01) ==
LOC: HO.HMCC 12:05
PROVIDERS: PCP Internal Medicine; Visit Provider Internal Medicine
DX: Z00.01 Encounter for general adult medical examination with abnormal findings (principal); E78.2 Mixed hyperlipidemia; R73.01 Impaired fasting glucose; F20.9 Schizophrenia, unspecified; D64.9 Anemia, unspecified; K59.00 Constipation, unspecified; Z71.89 Other specified counseling; Z00.00 Encounter for general adult medical examination without abnormal findings

== ENCOUNTER → 2025-04-15 12:04 | Outpatient (BNVA) | payer OTHER, SELFPAY | PROVIDERS: PCP Internal Medicine; Visit Provider Internal Medicine | DX: Z00.01 Encounter for general adult medical examination with abnormal findings (principal); E78.5 Hyperlipidemia, unspecified; E78.2 Mixed hyperlipidemia; R73.01 Impaired fasting glucose; F20.9 Schizophrenia, unspecified; D64.9 Anemia, unspecified; K59.00 Constipation, unspecified; Z71.89 Other specified counseling; Z79.899 Other long term (current) drug therapy | CPT/HCPCS: 96127; 99396; 99497 ==

== ENCOUNTER 2025-06-17 14:10 | Outpatient (AMB) | payer OTHER, SELFPAY ==
[2025-06-17 14:30] VITALS: BP 100/74; PULSE 100; BMI 25.8
--- NOTE | 2025-06-17 14:30 | A.OFFVIS_ITS ---
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 Allergies No Known Allergies (No Known Allergies*) Allergy (Verified 06/17/25 14:32) Medication List - Last Reconciled 06/17/25 by Romi Otto, JACKELIN-C bupropion HCl XL 150 mg PO QAM cholecalciferol (vitamin D3) (Vitamin D3) 50 mcg PO DAILY clozapine 300 mg PO BEDTIME ferrous sulfate 325 mg PO DAILY ibuprofen mg PO lorazepam 1 mg PO BID metoprolol tartrate 12.5 mg (1/2 x 25 mg) PO BID rosuvastatin 5 mg PO DAILY sennosides-docusate sodium 8.6-50 mg (Stool Softener-Laxative) 1 tab PO BEDTIME HPI HPI 1 yr follow up: Details: Mitch is a 39-year-old male past medical history of hyperlipidemia, impaired fasting glucose, frequent sinus tachycardia, mild cardiomyopathy who presents for follow-up. His last prior visit was 06/19/2024. Today he reports he has been doing well overall in the last year. He has had no hospitalizations or changes to his health. He will notice elevated heart rates during physical activity. No concerning heart palpitations. No lightheadedness, presyncope, syncope. He denies chest discomfort at rest or with activity. No shortness of breath, PND, orthopnea or edema. He walks routinely for exercise. He is compliant with his medications. He continues to drink 1 caffeinated coffee and 1/2 a can of Coca Cola each day. [facility] Medical History Anemia Impaired fasting glucose Mixed dyslipidemia Constipation Depression Schizophrenia Surgical History No pertinent past surgical history Family History Father No problems noted. Mother Breast cancer Brain cancer Hodgkins disease Maternal Grandmother No problems noted. Maternal Grandfather No problems noted. Paternal Grandmother Lung cancer Smoker Paternal Grandfather No problems noted. Brother No problems noted. Sister No problems noted. Sister No problems noted. Social History Housing: House Alcohol intake: never Patient Tobacco Use Status: Never used Tobacco e-Cigarette/Vaping Use: Never Used service: No Current occupational status: unemployed Cognitive needs: No Hearing needs: No Vision needs: No Review of Systems Const All systems reviewed & are unremarkable except as noted in HPI and below ENT Denies dizziness Card Details: heart rate elevated with physical activity Denies chest pain, Denies chest pain at rest, Denies chest pain with activity, Denies rapid heart rate, Denies pedal edema, Denies edema, Denies leg edema, Denies lightheadedness, Denies palpitations, Denies dyspnea, Denies dyspnea on exertion and Denies orthopnea Resp Denies cough, Denies dyspnea and Denies dyspnea on exertion GI Denies hematochezia and Denies change in stool character Musc Denies abnormal gait, Denies limited range of motion, Denies muscle cramps, Denies muscle weakness, Denies numbness, Denies radiating pain into limb, Denies stiffness and Denies tingling Neuro Denies abnormal gait, Denies dizziness, Denies numbness and Denies tingling Endo Denies palpitations Physical Exam Vital Signs: Last Vital Signs Pulse 100 06/17/25 14:30 BP 100/74 06/17/25 14:30 BMI result Body Mass Index 25.8 Const General: cooperative, healthy appearing, comfortable and no acute distress Orientation/consciousness: patient oriented x3 Eyes Sclerae: sclerae normal Neck Neck: Yes normal visual inspection Resp Effort & Inspection: normal respiratory effort Auscultation: clear to auscultation bilaterally, no crackles, no rales, no rhonchi and no wheezes Cardio Jugular venous distension: no JVD Rate: regular rate Rhythm: regular rhythm Heart sounds: S1 normal heart sound present, S2 normal heart sound present, no murmurs and no rubs Neuro General: patient oriented x3 Extrem General: Yes normal to inspection, No no pedal edema and No calf tenderness Psych Appearance: grossly normal Mental Status: mental status grossly normal Speech and movement: Normal speech and movement present Office Procedures EKG Details: Today, read by me, normal sinus rhythm, rate 100, QTC 474 millisecond [id number], Complete Assessment & Plan Assessment & Plan (1) Sinus tachycardia: Code(s): R00.0 - Tachycardia, unspecified Category: Medical Plan: History of frequent sinus tachycardia with low normal EF, managed with low-dose metoprolol. Last echo done 06/03/2024 showing EF 51%, no valve abnormalities. Last Holter monitor 08/05/2024 for 3 days shows sinus rhythm with average heart rate 82 beats per minute. EKG today showing sinus rhythm, rate 100. Unable to further titrate metoprolol due to low blood pressure readings. Reviewed reduction in caffeinated beverages. Continue metoprolol 12.5 mg b.i.d.. He previously declined changing to metoprolol XL. Cardiology follow-up 1 year, sooner if needed (2) Cardiomyopathy: Code(s): I42.9 - Cardiomyopathy, unspecified Category: Medical Qualifiers: Cardiomyopathy type: unspecified Qualified Code(s): I42.9 - Cardiomyopathy, unspecified Plan: Mild cardiomyopathy as above. No change in the last few years. No anginal symptoms. Most likely nonischemic and could be related frequent sinus tachyca rdia. He is on metoprolol. Plan I discussed with the patient the importance of managing tachycardia through medication and lifestyle changes, particularly reducing caffeine intake. We reviewed the stability of his cardiac function and the plan to maintain current management unless symptoms change. Patient Instructions: - Continue taking metoprolol as prescribed. - Monitor heart rate and report any significant changes. - Reduce caffeine intake and consider caffeine-free alternatives. - Follow up in one year or sooner if symptoms change. Patient was informed and verbally consented to the use of an ambient scribe for clinic note documentation during this visit. Visit time spent on chart review, interview, assessment, orders, documentation. Coding Level of Care Code Est Pt Level 3 (62268) Complex EM visit Add On G2211 Diagnoses Sinus tachycardia R00.0 Cardiomyopathy, unspecified type I42.9 Cardiomyopathy type: unspecified CPT Codes EKG - CPT: 80056-[id number], Complete ([id number]) Time Spent (min) 24
== END 2025-06-17 14:51 | disposition home or self-care (01) ==
LOC: HO.HCS 14:11
PROVIDERS: PCP Internal Medicine; Visit Provider Nurse Practitioner Family
DX: R00.0 Tachycardia, unspecified (principal); I42.9 Cardiomyopathy, unspecified
CPT/HCPCS: 93010; 99213

== ENCOUNTER → 2025-06-17 14:10 | Outpatient (BNVA) | payer OTHER, SELFPAY | PROVIDERS: PCP Internal Medicine; Visit Provider Nurse Practitioner Family | DX: R00.0 Tachycardia, unspecified (principal); I42.9 Cardiomyopathy, unspecified | CPT/HCPCS: 93005; 99212 ==

== ENCOUNTER 2025-06-23 08:54 | Outpatient (REF) | payer OTHER, SELFPAY ==
[2025-06-23 09:25] LABS: MANUAL DIFF FLAG NO
[2025-06-23 09:42] LABS: Hematocrit 37.7 % (42.0-52.0); Hemoglobin 13.1 g/dl (14.0-18.0); Imm Gran Abs Auto 0.02 X10*3/uL (0.00-0.03); Imm Gran Pct Auto 0.2 % (0.0-0.4); Lymphocytes Absolute Auto 2.4 X10*3/uL (1.2-4.9); Mean Corpuscular HGB Conc 34.7 g/dl (31.0-36.0); Mean Corpuscular Hemoglobin 30.2 pg (27.0-33.0); Mean Corpuscular Volume 86.9 fL (80.0-98.0); NRBC Abs Auto 0.000 X10*3/uL (0.0-0.012); NRBC Pct Auto 0.0 /100WBC (0.0-0.2); Platelet Count 196 X10*3/uL (160-400); Red Blood Count 4.34 X10*6/uL (4.60-5.80); White Blood Count 8.2 X10*3/uL (4.8-10.8)
== END 2025-06-23 08:55 | disposition home or self-care (01) ==
LOC: HO.LABR 08:54
PROVIDERS: PCP Internal Medicine
DX: Z79.899 Other long term (current) drug therapy (principal)
CPT/HCPCS: 36415; 85025

== ENCOUNTER 2025-09-15 08:55 | Outpatient (REF) | payer OTHER, SELFPAY ==
[2025-09-15 09:12] LABS: MANUAL DIFF FLAG NO
[2025-09-15 10:01] LABS: Hematocrit 40.9 % (42.0-52.0); Hemoglobin 13.6 g/dl (14.0-18.0); Imm Gran Abs Auto 0.04 X10*3/uL (0.00-0.03); Imm Gran Pct Auto 0.4 % (0.0-0.4); Lymphocytes Absolute Auto 2.4 X10*3/uL (1.2-4.9); Mean Corpuscular HGB Conc 33.3 g/dl (31.0-36.0); Mean Corpuscular Hemoglobin 30.0 pg (27.0-33.0); Mean Corpuscular Volume 90.1 fL (80.0-98.0); NRBC Abs Auto 0.000 X10*3/uL (0.0-0.012); NRBC Pct Auto 0.0 /100WBC (0.0-0.2); Platelet Count 237 X10*3/uL (160-400); Red Blood Count 4.54 X10*6/uL (4.60-5.80); White Blood Count 9.4 X10*3/uL (4.8-10.8)
== END 2025-09-15 08:56 | disposition home or self-care (01) ==
LOC: HO.LABR 08:55
PROVIDERS: PCP Internal Medicine
DX: Z79.899 Other long term (current) drug therapy (principal)
CPT/HCPCS: 36415; 85025